=== PATIENT | female | born 2005 | race Caucasian/White ===

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

== ENCOUNTER 2024-03-09 19:25 | Outpatient (REF) | payer MEDICAID, SELFPAY ==
[2024-03-09 17:20] LABS: HCG Quant, Pregnancy 585 mIU/mL (1-3)
[2024-03-11 11:53] LABS: Chlamydia Result Negative (Negative); GC Result Negative (Negative)
== END 2024-03-09 19:26 | disposition home or self-care (01) ==
LOC: NCHCN 19:25
PROVIDERS: PCP Family Medicine; Visit Provider Family Medicine
DX: N91.2 Amenorrhea, unspecified (principal); Z00.00 Encounter for general adult medical examination without abnormal findings
CPT/HCPCS: 87491; 87591; 84702

== ENCOUNTER 2024-07-11 19:56 | Emergency (ER) | payer MEDICAID, SELFPAY ==
[2024-07-11 19:59] VITALS: BP 153/79; PULSE 92; RESP 18; O2SAT 100
[2024-07-11 20:02] VITALS: TEMP 36.2
[2024-07-11] MEDS: Docusate Sodium 100 MG/10 ML CUP PO (21:03)
--- OUTSIDE RECORDS SUMMARY | 2024-07-11 21:26 | XMS_ITS | Clinical Summary ---
Author Organization [facility] Address [address] [place] [id number] Care Team Providers Care Hand Profiler Name Role Phone Unavailable Primary Care Provider Unavailabl e Social History Tobacco Use Types Packs/Day Years Used Date Smoking Tobacco: Never Assessed Interpersonal Safety Answer Date Record ed Physically Hurt Never 04/19/2020 Verbally Threaten Not on file 04/19/2020 Comments Unknown Sex and Gender Information Value Date Recorded Sex Assigned at Not on file Legal Sex Female 8:51 EST Gender Identity Not on file Sexual Orientation Not on file Plan of Treatment Health Maintenance Due Date Last Done Comments Hepatitis B Vaccine (1 of 3 - 19+ 3-dose series) 10/05 COVID-19 Vaccine (2023- season) 2024 Hepatitis C Screen Completed 03/13/2022 Procedures Procedure Name Priority Date/Time Associated Diagnosis Comments HEPATITIS C AB W REFLEX TO HCV RNA BY PCR Routine 03/13/2022 11:10 EDT from Last 3 Months or Most Recently Relevant to Health Maintenance Results * HEPATITIS C AB W REFLEX TO HCV RNA BY PCR (03/13/2022 11:10 EDT) Hep C Antibody Negative Negative 03/14/2022 9:56 EDT [facility] Blood VENOUS BLOOD / Unknown 03/13/2022 11:10 EDT 03/13/2022 16:51 EDT us Provider Outr Resulting Lab CHEMISTRY & BLOOD GA S ORDERABLES Final Result [facility] [address] [place] [address] from Last 3 Months or Most Recently Relevant to Health Maintenance
--- OUTSIDE RECORDS SUMMARY | 2024-07-11 21:26 | XMS_ITS | Encounter Summary ---
Author Organization [facility] Address [address] [place] [address] Care Team Providers Care Rough Carpenter Name Role Phone Unavailable Primary Care Provider Unavailabl e Encounter Details Date Type Department Care Team (Late st Contact Info) Description 11/07/2019 Lab Requisition [facility] Pathology & Laboratory Medicine - [facility] [address] [place] [address] Outr Resulting Lab, Provider Social History Tobacco Use Types Packs/Day Years Used Date Smoking Tobacco: Never Assessed Comments Unknown Sex and Gender Information Value Date Recorded Sex Assigned at Not on file Legal Sex Female 8:51 EST Gender Identity Not on file Sexual Orientation Not on file documented as of this encounter Plan of Treatment Not on file documented as of this encounter Procedures Procedure Name Priority Date/Time Associated Diagnosis Comments CHLAMYDIA/N. GONORRHOEAE AMPLIFIED NUCLEIC ACID Routine 11/06/2019 13:20 EDT documented in this encounter Results * CHLAMYDIA/N. GONORRHOEAE AMPLIFIED RNA (11/06/2019 13:20 EDT) Neisseria gonorrhoeae Result Negative Negative 11/09/2019 15:15 EDT [facility] Chlamydia trachomatis Result Negative Negative 11/09/2019 15:15 EDT [facility] Urine URINE / Unknown 11/06/2019 1 3:20 EDT 11/08/2019 16:43 EDT Narrative [facility] - 11/09/2019 15:15 EDT A first catch urine specimen is acceptable for detection of Gonorrhea and Chlamydia, but might detect up to 10% fewer infections when compared with vaginal and endocervical swab samples. us Provider Outr Resulting Lab MICROBIOLOGY - GENER AL ORDERABLES Final Result [facility] [address] [place] [address] documented in this encounter Visit Diagnoses Not on filedocumented in this encounter
--- OUTSIDE RECORDS SUMMARY | 2024-07-11 21:26 | XMS_ITS | Encounter Summary ---
Author Organization [facility] Address [address] [place] [address] Care Team Providers Care Dipper Operator Name Role Phone Unavailable Primary Care Provider Unavailabl e Encounter Details Date Type Department Care Team (Late st Contact Info) Description 11/07/[address] [facility] Pathology & Laboratory Medicine - [facility] [place] [address] [place] [address] Outr Resulting Lab, Provider Social History Tobacco [...] gonorrhoeae Result Negative Negative 11/09/2019 15:15 EDT [facility] Chlamydia trachomatis Result Negative Negative 11/09/2019 15:15 EDT [facility] Swab ENTIRE VAGINA / Unknown 11/06/2019 13:20 EDT 11/08/2019 16:43 EDT us Provider Outr Resulting Lab MICROBIOLOGY - GENER AL ORDERABLES Final Result [facility] [address] [place] [address] documented in this encounter Visit Diagnoses Not on filedocumented in this encounter
--- OUTSIDE RECORDS SUMMARY | 2024-07-11 21:26 | XMS_ITS | Encounter Summary ---
[place] [address] Care Team Providers Care Wildlife Control Operator Name Role Phone Melva Santos MD Primary Care Provider [phone] Reason for Referral * Diagnostic Test (Routine) - Closed Specialty Diagnoses / Procedures Referred By Contac t Referred To Contact Radiology Diagnoses Family history of congenital anomalies 41 weeks gestation of Procedures US OB Detailed Morphology Alysia Souza CNM [address] [place] [address] [address] [place] [address] [place] [address] Referral ID Status Reason Start Date Expiration Date V isits Requested Visits Authorized [id number] Closed Specialty Service Requested 04/12/2022 10/11/2023 1 1 Reason for Visit * Diagnostic Test (Routine) - Closed Specialty Diagnoses / Procedures Referred By Contac t Referred To Contact Radiology Diagnoses Family history of congenital anomalies 41 weeks gestation of Procedures US OB Detailed Morphology Alysia Souza CNM [address] [facility] [address] [place] [address] [facility] [place] [address] Referral ID Status Reason Start Date Expiration Date V isits Requested Visits Authorized [id number] Closed Specialty Service Requested 04/12/2022 10/11/2023 1 1 Encounter Details Date Type Department Care Team (Latest Contact Info) Description 06/11/2022 8:04 AM EST - 06/11/2022 11:59 PM EST Hospital [place] [address] [address] Sou[address] [place] [address] Family history of congenital anomalies; 41 weeks gestation of Discharge Disposition: Home Social History Tobacco Use Types Packs/Day Years Used Date Smoking Tobacco: Every Day Smokeless Tobacco: Never Comments:Smokes marijuana no t cigarettes Alcohol Use Standard Drinks/Week Comments Not Currently 0 (1 standard drink = 0.6 oz pur e alcohol) Comments Yes Sex and Gender Information Value Date Recorded Sex Assigned at Female 05/17/2022 1:33 PM EST Gender Identity Not on file Sexual Orientation Straight 05/17/2022 1: 33 PM EST documented as of this encounter Medications at Time of Discharge Medication Sig Dispensed Refills Start Date End Date Ventolin HFA 90 mcg/actuation HFA Aerosol Inhaler 05/04/2022 ProChamber Spacer 05/04/2022 Vitamin Plus Low Iron 27 mg iron- 1 mg Tablet 04/23/2022 tretinoin (RETIN-A) 0.05 % CreamIndications:Acne vulgaris Apply topically nightly. 45 g 2 03/20/2017 clobetasol (TEMOVATE) 0.05 % SolutionIndications:Psor iasis Apply topically twice daily to the scalp. Do not let the solution go on the face or the neck. 50 mL 2 03/20/2017 clindamycin (CLEOCIN T) 1 % SolutionIndications:Acne vulgaris apply every morning to face and shoulders for acne. 60 mL 3 02/26/2017 hydrocortisone 2.5 % CreamIndications:Psorias is apply twice daily to affected areas in the armpits and buttocks for two weeks, then switch to Protopic. 30 g 02/26/2017 tacrolimus (PROTOPIC) 0.1 % OintmentIndications:Psor iasis apply twice daily to affected areas in the armpits and buttocks after finishing Hydrocortisone, for maintenance. 60 g 3 02/26/2017 fluocinonide (LIDEX) 0.05 % Solution Apply topically once daily to the scalp after showering or just before bed for 3 weeks, then take a week off. Okay to repeat cycle. 60 mL 02/26/2017 documented as of this encounter Plan of Treatment Not on file documented as of this encounter Procedures Procedure Name Priority Date/Time Associated Diagnosis Comments US OB DETAILED MORPHOLOGY Routine 06/11/2022 9:42 AM EST Family history of congenital anomalies 41 weeks gestation of documented in this encounter Results * US OB Detailed Morphology (06/11/2022 9:42 AM EST) Anatomical Region Laterality Modality Pelvis, Abdomen Ultrasound 06/11/2022 8:50 AM EST Impressions 06/11/2022 9:54 AM EST 2nd Trimester - Detailed Morphology - Summary Single intrauterine with a gestational age of 23w 4d based on LMP ??(12/28/21) Composite age based on the current ultrasound alone is 23w 1d. Current growth parameters are consistent with prior dating indicating normal growth. Amniotic fluid volume is Subjectively normal for gestational age Detailed anatomic evaluation was performed and no structural abnormalities are noted. Thank you for letting us participate in the care of this patient. If you are a health care provider and have any questions regarding this report, please contact the number above. For patients who have questions, please contact the health inpatient care manager rn that requested your imaging first. ? Radha Chun, Staff Physician Electronically Signed Final Report ?? 06/11/2022 09:53 am Narrative 06/11/2022 9:54 AM EST OBSTETRICS REPORT ?(Signed Final 06/11/2022 09:53 am) PATIENT INFO: ID #: ? [id number] ?: ??[birth year] (16 yrs)(F) Name: ? DHEERAJ Collins ? Visit Date: 06/11/2022 08:50 am ? RAZA PERFORMED BY: Performed By: ? Margarette Corbett RDMS Attending: ?Radha Chun MD Referred By: ?ALYSIA SOUZA Location: ? [facility] SERVICE(S) PROVIDED: [facility] - Detailed Morphology - [id number] ? [id number] INDICATIONS: 23 weeks gestation of ?Z3A.23 Heart defect maternal aunt and FOB brother VITAL SIGNS: Weight (lb): 166.0 Height: ?5'4 ? BMI: ? 28.49 EVALUATION: Num Of Fetuses: ? 1 Heart Rate(bpm): ??127 Cardiac Activity: ? Observed, normal rhythm Presentation: ? Breech Placenta: ? Anterior P. Cord Insertion: ?Within Normal Limits Amniotic Fluid DUSTIN FV: ?Subjectively normal for gestational age --------- BIOMETRY: --------- BPD: ?56.4 ??mm ? G.Age: ?? 23w 2d OFD: ?75.5 ??mm HC: ?212.4 ??mm ? G.Age: ?? 23w 2d FL: ? 40.0 ??mm ? G.Age: ?? 22w 6d HUM: ?39.3 ??mm ? G.Age: ?? 24w 0d CER: ?23.9 ??mm ? G.Age: ?? 22w 0d NFT: ?4.95 ??mm NB: ?8.0 ??mm LV: ?3.1 ??mm CM: ?4.0 ??mm CI: ?74.7 ??% ? 70 - 86 FL/HC: ? 18.8 ??% ? 18.7 - 20.9 FL/BPD: ?70.9 ??% ? 71 - 87 Est. FW: ? 517 ??gm ?1 lb 2 oz OB HISTORY: : ?1 GESTATIONAL AGE: LMP: ? 23w 4d ?Date: ??12/28/21 ? DORI: ?? 10/04/22 U/S Today: ? 23w 1d ?DORI: ?? 10/07/22 Best: ?23w 4d ?? Det. By: ??LMP ??(12/28/21) ?DORI: ?? 10/04/22 TARGETED ANATOMY: Central Nervous System Calvarium/Cranial V.: ??Within Normal Limits Intracranial Clrai: ? Within Normal Limits Cavum: ? Within Normal Limits Parenchyma: ?Within Normal Limits Lateral Ventricles: ?Within Normal Limits Choroid Plexus: ?Within Normal Limits Cereb./Vermis: ? Within Normal Limits Cisterna Magna: ?Within Normal Limits Midline Falx: ?Within Normal Limits Spine Cervical: ?Visualized Thoracic: ?Visualized Lumbar: ?Visualized Sacral: ?Visualized Shape/Curvature: ? Visualized Head/Neck Face: ?Within Normal Limits Lips: ?Within Normal Limits Neck: ?Within Normal Limits Nuchal Fold: ? Within Normal Limits Nasal Bone: ?Present Profile: ? Visualized Orbits/Eyes: ? Visualized Mandible: ?Visualized Maxilla: ? Visualized Thorax Thoracic Contour: ?Within Normal Limits Lungs: ? Visualized 4 Chamber View: ?Within Normal Limits Cardiac Activity: ?Normal Rhythm Rt Outflow Tract: ?Visualized Lt Outflow Tract: ?Visualized Aortic Arch: ? Visualized Ductal Arch: ? Visualized SVC: ? Visualized Cardiac [place]: ?Visualized Diaphragm: ? Visualized 3 Vessel View: ? Visualized 3 V Trachea View: ?Visualized IVC: ? Visualized Crossing: ?Visualized Abdomen Ventral Wall: ?Visualized Cord Insertion: ?Visualized Situs: ? Normal Stomach: ? Visualized Liver: ? Visualized Lt Kidney: ? Visualized Rt Kidney: ? Visualized Bladder: ? Visualized Bowel: ? Visualized Extremities Lt Humerus: ?Within Nomal Limits Rt Humerus: ?Within Normal Limits Lt Forearm: ?Within Normal Limits Rt Forearm: ?Within Normal Limits Lt Hand: ? Within Normal Limits Rt Hand: ? Within Normal Limits Lt Femur: ?Within Normal Limits Rt Femur: ?Within Normal Limits Lt Lower Leg: ?Within Normal Limits Rt Lower Leg: ?Within Normal Limits Lt Foot: ? Visualized Rt Foot: ? Visualized Other Umbilical Cord: ?3 vessel cord Genitalia: ? Normal CERVIX UTERUS ADNEXA: Right Ovary Size(cm) ? 1.5 ??x ?? 1.3 ?x ??1.6 ? Vol(ml): 1.6 Visualized Left Ovary Size(cm) ? 3.7 ??x ?? 2.5 ?x ??1.3 ? Vol(ml): 6.3 Visualized Procedure Note Elizabeth Chun MD - 06/11/2022 OBSTETRICS REPORT (Signed Final 06/11/2022 09:53 am) PATIENT INFO: ID #: [id number] : [birth year] (16 yrs)(F) Name: DHEERAJ Collins Visit Date: 06/11/2022 08:50 am PERSON PERFORMED BY: Performed By: Margarette Corbett RDMS Attending: Radha Chun MD Referred By: ALYSIA SOUZA Location: [facility] SERVICE(S) PROVIDED: [facility] - Detailed Morphology - [id number] INDICATIONS: 23 weeks gestation of Z3A.23 Heart defect maternal aunt and FOB brother VITAL SIGNS: Weight (lb): 166.0 Height: 5'4 BMI: 28.49 EVALUATION: Num Of Fetuses: 1 Heart Rate(bpm): 127 Cardiac Activity: Observed, normal rhythm Presentation: Breech Placenta: Anterior P. Cord Insertion: Within Normal Limits Amniotic Fluid DUSTIN FV: Subjectively normal for gestational age --------- BIOMETRY: --------- BPD: 56.4 mm G.Age: 23w 2d OFD: 75.5 mm HC: 212.4 mm G.Age: 23w 2d FL: 40.0 mm G.Age: 22w 6d HUM: 39.3 mm G.Age: 24w 0d CER: 23.9 mm G.Age: 22w 0d NFT: 4.95 mm NB: 8.0 mm LV: 3.1 mm CM: 4.0 mm CI: 74.7 % 70 - 86 FL/HC: 18.8 % 18.7 - 20.9 FL/BPD: 70.9 % 71 - 87 Est. FW: 517 gm 1 lb 2 oz OB HISTORY: : 1 GESTATIONAL AGE: LMP: 23w 4d Date: 12/28/21 DORI: 10/04/22 U/S Today: 23w 1d DORI: 10/07/22 Best: 23w 4d Det. By: LMP (12/28/21) DORI: 10/04/22 TARGETED ANATOMY: Central Nervous System Calvarium/Cranial V.: Within Normal Limits Intracranial Clari: Within Normal Limits Cavum: Within Normal Limits Parenchyma: Within Normal Limits Lateral Ventricles: Within Normal Limits Choroid Plexus: Within Normal Limits Cereb./Vermis: Within Normal Limits Cisterna Magna: Within Normal Limits Midline Falx: Within Normal Limits Spine Cervical: Visualized Thoracic: Visualized Lumbar: Visualized Sacral: Visualized Shape/Curvature: Visualized Head/Neck Face: Within Normal Limits Lips: Within Normal Limits Neck: Within Normal Limits Nuchal Fold: Within Normal Limits Nasal Bone: Present Profile: Visualized Orbits/Eyes: Visualized Mandible: Visualized Maxilla: Visualized Thorax Thoracic Contour: Within Normal Limits Lungs: Visualized 4 Chamber View: Within Normal Limits Cardiac Activity: Normal Rhythm Rt Outflow Tract: Visualized Lt Outflow Tract: Visualized Aortic Arch: Visualized Ductal Arch: Visualized SVC: Visualized Cardiac [place]: Visualized Diaphragm: Visualized 3 Vessel View: Visualized 3 V Trachea View: Visualized IVC: Visualized Crossing: Visualized Abdomen Ventral Wall: Visualized Cord Insertion: Visualized Situs: Normal Stomach: Visualized Liver: Visualized Lt Kidney: Visualized Rt Kidney: Visualized Bladder: Visualized Bowel: Visualized Extremities Lt Humerus: Within Nomal Limits Rt Humerus: Within Normal Limits Lt Forearm: Within Normal Limits Rt Forearm: Within Normal Limits Lt Hand: Within Normal Limits Rt Hand: Within Normal Limits Lt Femur: Within Normal Limits Rt Femur: Within Normal Limits Lt Lower Leg: Within Normal Limits Rt Lower Leg: Within Normal Limits Lt Foot: Visualized Rt Foot: Visualized Other Umbilical Cord: 3 vessel cord Genitalia: Normal CERVIX UTERUS ADNEXA: Right Ovary Size(cm) 1.5 x 1.3 x 1.6 Vol(ml): 1.6 Visualized Left Ovary Size(cm) 3.7 x 2.5 x 1.3 Vol(ml): 6.3 Visualized IMPRESSION 2nd Trimester - Detailed Morphology - Summary Single intrauterine with a gestational age of 23w 4d based on LMP (12/28/21) Composite age based on the current ultrasound alone is 23w 1d. Current growth parameters are consistent with prior dating indicating normal growth. Amniotic fluid volume is Subjectively normal for gestational age Detailed anatomic evaluation was performed and no structural abnormalities are noted. Thank you for letting us participate in the care of this patient. If you are a health care provider and have any questions regarding this report, please contact the number above. For patients who have questions, please contact the health inpatient care manager rn that requested your imaging first. Radha Chun, Staff Physician Electronically Signed Final Report 06/11/2022 09:53 am Alysia Souza CNM IMG US OB ORDERABLE S documented in this encounter Visit Diagnoses Diagnosis Family history of congenital anomalies 41 weeks gestation of Post term , unspecified episode of care documented in this encounter Care Teams Wildlife Control Operator Relationship Specialty Start Date End Date Melva Santos MD [facility] [address] [place] [address] PCP - General 04/18/10 documented as of this encounter
--- OUTSIDE RECORDS SUMMARY | 2024-07-11 21:26 | XMS_ITS | Encounter Summary ---
Author Organization [facility] Address [address] [place] [address] Care Team Providers Care Environmental Safety Specialist Name Role Phone Unavailable Primary Care Provider Unavailabl e Encounter Details Date Type Department Care Team (Late st Contact Info) Description 03/13/2022 Lab Requisition [facility] Pathology & Laboratory Medicine - [facility] [address] [place] [address] Outr Resulting Lab, Provider Social History Tobacco [...] Procedure Name Priority Date/Time Associated Diagnosis Comments HIV 1/2 ANTIGEN AND ANTIBODY, 4TH GENERATION Routine 03/13/2022 11:10 EDT documented in this encounter Results * HIV 1/2 ANTIGEN AND ANTIBODY, 4TH GENERATION (03/13/2022 11:10 EDT) HIV 1 and 2 Antibody/p24 Antigen, 4th Generation Negative Negative 03/14/2022 10:07 EDT [facility] Comment:If acute HIV-1 infec tion is suspected in a high risk patient, submit plasma specimen for HIV-1 RNA quantitation test. Blood VENOUS BLOOD / Unknown 03/13/2022 11:10 EDT 03/13/2022 16:51 EDT Narrative [facility] - 03/14/2022 10:07 EDT Fourth Generation assay performed on the Siemens Lookoutaur XPT. us Provider Outr Resulting Lab IMMUNOLOGY AND SEROL OGY ORDERABLES Final Result [facility] [address] [place] [address] documented in this encounter Visit Diagnoses Not on filedocumented in this encounter
--- OUTSIDE RECORDS SUMMARY | 2024-07-11 21:26 | XMS_ITS | Referral Summary ---
Author Organization [facility] Address [address] [place] [address] Care Team Providers Care Director Of Sports Performance Name Role Phone Unavailable Primary Care Provider [...] Orientation Not on file Plan of Treatment Not on file Procedures Procedure Name Priority Date/Time Associated Diagnosis Comments HEPATITIS C AB W REFLEX TO HCV RNA BY PCR Routine 03/13/2022 11:10 EDT from Last 3 Months or Most Recently Relevant to Health Maintenance Results * HEPATITIS C AB W REFLEX TO HCV RNA BY PCR (03/13/2022 11:10 EDT) Hep C Antibody Negative Negative 03/14/2022 9:56 EDT [facility] Blood VENOUS BLOOD / Unknown 03/13/2022 11:10 EDT 03/13/2022 16:51 EDT us Provider Outr Resulting Lab CHEMISTRY & BLOOD GA S ORDERABLES Final Result [facility] [address] [place] [address] from Last 3 Months or Most Recently Relevant to Health Maintenance
--- OUTSIDE RECORDS SUMMARY | 2024-07-11 21:26 | XMS_ITS | Encounter Summary ---
Author Organization [facility] Address [address] [place] [address] Care Team Providers Care Customer Service Leader Name Role Phone Unavailable Primary Care Provider Unavailabl e Encounter Details Date Type Department Care Team (Late st Contact Info) Description 03/13/2022 Lab Requisition [facility] Pathology & Laboratory Medicine - [facility] [address] [place] [address] Outr Resulting Lab, Provider Social History Tobacco [...] RNA BY PCR Routine 03/13/2022 11:10 EDT HEPATITIS B SURFACE ANTIGEN Routine 03/13/2022 11:10 EDT documented in this encounter Results * HEPATITIS B SURFACE ANTIGEN (03/13/2022 11:10 EDT) Hep B Surface Ag Negative Negative 03/14/2022 9:14 EDT [facility] Blood VENOUS BLOOD / Unknown 03/13/2022 11:10 EDT 03/13/2022 16:51 EDT us Provider Outr Resulting Lab CHEMISTRY & BLOOD GA S ORDERABLES Final Result [facility] [address] [place] [address] * HEPATITIS C AB W REFLEX TO HCV RNA BY PCR (03/13/2022 11:10 EDT) Hep C Antibody Negative Negative 03/14/2022 9:56 EDT [facility] Blood VENOUS BLOOD / Unknown 03/13/2022 11:10 EDT 03/13/2022 16:51 EDT us Provider Outr Resulting Lab CHEMISTRY & BLOOD GA S ORDERABLES Final Result [facility] [address] [place] [address] documented in this encounter Visit Diagnoses Not on filedocumented in this encounter
--- OUTSIDE RECORDS SUMMARY | 2024-07-11 21:26 | XMS_ITS | Clinical Summary ---
Author Organization [facility], [facility]–1983 Address [facility] [address] Care Team Providers Care Blood Collector Name Role Phone Melva Santos MD Primary Care Provider [phone] Allergies No known active allergies Medications Medication Sig Dispensed Refills Start Date End Date Status clindamycin (CLEOCIN T) 1 % SolutionIndications: Acne vulgaris apply every morning to face and shoulders for acne. 60 mL 3 02/26/2017 Active Additional Information Patient not taking.Reported on 06/11/2022 hydrocortisone 2.5 % CreamIndications:Pso riasis apply twice daily to affected areas in the armpits and buttocks for two weeks, then switch to Protopic. 30 g 02/26/2017 Active Additional Information Patient not taking.Reported on 06/11/2022 tacrolimus (PROTOPIC) 0.1 % OintmentIndications: Psoriasis apply twice daily to affected areas in the armpits and buttocks after finishing Hydrocortisone, for maintenance. 60 g 3 02/26/2017 Active Additional Information Patient not taking.Reported on 06/11/2022 fluocinonide (LIDEX) 0.05 % Solution Apply topically once daily to the scalp after showering or just before bed for 3 weeks, then take a week off. Okay to repeat cycle. 60 mL 02/26/2017 Active Additional Information Patient not taking.Reported on 06/11/2022 tretinoin (RETIN-A) 0.05 % CreamIndications:Acn e vulgaris Apply topically nightly. 45 g 2 03/20/2017 Active Additional Information Patient not taking.Reported on 06/11/2022 clobetasol (TEMOVATE) 0.05 % SolutionIndications: Psoriasis Apply topically twice daily to the scalp. Do not let the solution go on the face or the neck. 50 mL 2 03/20/2017 Active Additional Information Patient not taking.Reported on 06/11/2022 Ventolin HFA 90 mcg/actuation HFA Aerosol Inhaler 05/04/2022 Active ProChamber Spacer 05/04/2022 Active Vitamin Plus Low Iron 27 mg iron- 1 mg Tablet 04/23/2022 Active Active Problems Problem Noted Date Diagnosed Date Family history of congenital heart defect 2022 Immunizations Name Administration Dates Next Due Hepatitis B, Unspecified Formulation 2004 Social History Tobacco Use Types Packs/Day Years Used Date Smoking Tobacco: Every Day Smokeless Tobacco: Never Tobacco Cessation:Ready to Q uit: Not Asked; Counseling Given: Not Answered Comments:Smokes marijuana not cigarettes Alcohol Use Standard Drinks/Week Comments Not Currently 0 (1 standard drink = 0.6 oz pur e alcohol) Sex and Gender Information Value Date Recorded Sex Assigned at Female 05/17/2022 1:33 PM EST Gender Identity Not on file Sexual Orientation Straight 05/17/2022 1: 33 PM EST Last Filed Vital Signs Vital Sign Reading Time Taken Comments Blood Pressure 123/59 06/11/2022 8:16 AM EST Pulse 82 06/11/2022 8:16 AM EST Temperature 36.4 ??C (97.6 ??F) 06/11/2022 8:16 AM ES T Respiratory Rate 18 06/11/2022 8:16 AM EST Oxygen Saturation 100% 06/11/2022 8:16 AM EST Inhaled Oxygen Concentration - - Weight 71.4 kg (157 lb 8 oz) 06/11/2022 8:16 AM EST Height 166.2 cm (5' 5.45) 06/11/2022 8:16 AM ES T Body Mass Index 25.85 06/11/2022 8:16 AM EST Body Mass Index Percentile 86.29% 06/11/2022 8:1 6 AM EST Growth Chart: [facility] (Girls, 2- 20 Years) Plan of Treatment Health Maintenance Due Date Last Done Comments Hepatitis B vaccine (0-59 yrs) (2) 11/09/20042004 Chlamydia Screening 10/06/2019 HPV vaccine (1 - 3-dose series) 10/06/2019 HIV screen 2022 Hepatitis C Screening 2022 Pneumococcal Vaccine: At-Risk 5-49yrs (1 of 2 - PCV) 0 10/06/2023 Tetanus/Diphtheria/Pertussis Vaccines (1 - Tdap) 10/05 Covid-19 Vaccine (1 - 2023-25 season) 2024 Influenza (Flu) vaccine (1 o f 1 - Influenza standard series) 01/26/2024 Care Teams Blood Collector Relationship Specialty Start Date End Date Melva Santos MD [address] [place], [place] [id number] PCP - General 04/18/10
--- OUTSIDE RECORDS SUMMARY | 2024-07-11 21:26 | XMS_ITS | Encounter Summary ---
Author Organization [facility] Address [address] [place] [address] Care Team Providers Care Ballast Inspector Name Role Phone Unavailable Primary Care Provider Unavailabl e Encounter Details Date Type Department Care Team (Late st Contact Info) Description 03/13/2022 Lab Requisition [facility] Pathology & Laboratory Medicine - [facility] [address] [place] [address] Outr Resulting Lab, Provider Social History Tobacco [...] Comments CHLAMYDIA/N. GONORRHOEAE AMPLIFIED NUCLEIC ACID Routine 03/13/2022 10:50 EDT documented in this encounter Results * CHLAMYDIA/N. GONORRHOEAE AMPLIFIED RNA (03/13/2022 10:50 EDT) Neisseria gonorrhoeae Result Negative Negative 03/14/2022 15:36 EDT [facility] Chlamydia trachomatis Result Negative Negative 03/14/2022 15:36 EDT [facility] Swab ENTIRE ENDOCERVIX / Unknown 03/13/2022 10:50 EDT 03/13/2022 22:15 EDT us Provider Outr Resulting Lab MICROBIOLOGY - GENER AL ORDERABLES Final Result [facility] [address] [place] [address] documented in this encounter Visit Diagnoses Not on filedocumented in this encounter
--- OUTSIDE RECORDS SUMMARY | 2024-07-11 21:26 | XMS_ITS | Encounter Summary ---
Author Organization [facility] Address [address] [place] [address] Care Team Providers Care Cashier Parking Lot Name Role Phone Unavailable Primary Care Provider Unavailabl e Encounter Details Date Type Department Care Team (Late st Contact Info) Description 07/02/2019 Lab Requisition [facility] Pathology & Laboratory Medicine - [facility] [address] [place] [address] Unknown, Provider, MD Social History Tobacco Use Types Packs/Day Years [...] Comments CHLAMYDIA/N. GONORRHOEAE AMPLIFIED NUCLEIC ACID Routine 07/01/2019 16:20 EST documented in this encounter Results * CHLAMYDIA/N. GONORRHOEAE AMPLIFIED RNA (07/01/2019 16:20 EST) Neisseria gonorrhoeae Result Negative Negative 07/03/2019 14:44 EST [facility] Chlamydia trachomatis Result Negative Negative 07/03/2019 14:44 EST [facility] Urine URINE / Unknown 07/01/2019 1 6:20 EST 07/02/2019 15:49 EST Narrative [facility] - 07/03/2019 14:44 EST A first catch urine specimen is acceptable for detection of Gonorrhea and Chlamydia, but might detect up to 10% fewer infections when compared with vaginal and endocervical swab samples. us Provider Unknown MICROBIOLOGY - GENERAL ORDER DUANE Final Result [facility] [address] [place] [address] documented in this encounter Visit Diagnoses Not on filedocumented in this encounter
--- OUTSIDE RECORDS SUMMARY | 2024-07-11 21:26 | XMS_ITS | Encounter Summary ---
Author Organization [facility] Address [address] [place] [address] Care Team Providers Care Corporate Strategy Associate Name Role Phone Unavailable Primary Care Provider Unavailabl e Encounter Details Date Type Department Care Team (Late st Contact Info) Description 03/13/2022 Lab Requisition [facility] Pathology & Laboratory Medicine - [facility] [address] [place] [address] Outr Resulting Lab, Provider Social History Tobacco [...] Procedure Name Priority Date/Time Associated Diagnosis Comments RUBELLA IGG ANTIBODY Routine 03/13/2022 11:10 EDT VARICELLA IGG ANTIBODY Routine 03/13/2022 11:10 EDT documented in this encounter Results * VARICELLA IGG ANTIBODY (03/13/2022 11:10 EDT) Varicella IgG Ab Positive See Note 03/14/2022 12:41 EDT [facility] Comment:Presence of detectab le Varicella Zoster virus IgG antibodies. Blood VENOUS BLOOD / Unknown 03/13/2022 11:10 EDT 03/13/2022 16:51 EDT us Provider Outr Resulting Lab IMMUNOLOGY AND SEROL OGY ORDERABLES Final Result [facility] [address] [place] [address] * RUBELLA IGG ANTIBODY (03/13/2022 11:10 EDT) Rubella IgG Ab Positive See Note 03/14/2022 12:46 EDT [facility] Comment:Positive for IgG ant ibodies to Rubella virus. Blood VENOUS BLOOD / Unknown 03/13/2022 11:10 EDT 03/13/2022 16:51 EDT us Provider Outr Resulting Lab CHEMISTRY & BLOOD GA S ORDERABLES Final Result [facility] [address] [place] [address] documented in this encounter Visit Diagnoses Not on filedocumented in this encounter
--- OUTSIDE RECORDS SUMMARY | 2024-07-11 21:26 | XMS_ITS | Encounter Summary ---
Author Organization [facility] Address [address] [place] [address] Care Team Providers Care Onion Farmer Name Role Phone Unavailable Primary Care Provider Unavailabl e Encounter Details Date Type Department Care Team (Late st Contact Info) Description 08/09/2021 Lab Requisition [facility] Pathology & Laboratory Medicine - [facility] [address] [place] [address] Outr Resulting Lab, Provider Social History Tobacco [...] 1/2 ANTIGEN AND ANTIBODY, 4TH GENERATION Routine 08/08/2021 14:20 EDT documented in this encounter Results * HIV 1/2 ANTIGEN AND ANTIBODY, 4TH GENERATION (08/08/2021 14:20 EDT) HIV 1 and 2 Antibody/p24 Antigen, 4th Generation Negative Negative 08/10/2021 9:49 EDT [facility] Comment:If acute HIV-1 infec tion is suspected in a high risk patient, submit plasma specimen for HIV-1 RNA quantitation test. Blood VENOUS BLOOD / Unknown 08/08/2021 14:20 EDT 08/09/2021 17:11 EDT Narrative [facility] - 08/10/2021 9:49 EDT Fourth Generation assay performed on the Siemens Mixgaraur XPT. us Provider Outr Resulting Lab IMMUNOLOGY AND SEROL OGY ORDERABLES Final Result [facility] [address] [place] [address] documented in this encounter Visit Diagnoses Not on filedocumented in this encounter
--- OUTSIDE RECORDS SUMMARY | 2024-07-11 21:26 | XMS_ITS | Encounter Summary ---
Author Organization [facility] Address [address] [place] [address] Care Team Providers Care Masonry Contractor Name Role Phone Unavailable Primary Care Provider Unavailabl e Encounter Details Date Type Department Care Team (Late st Contact Info) Description 03/10/2024 Lab Requisition [facility] Pathology & Laboratory Medicine - [facility] [address] [place] [address] Outr Resulting Lab, Provider Social History Tobacco [...] Comments CHLAMYDIA/N. GONORRHOEAE AMPLIFIED NUCLEIC ACID Routine 03/09/2024 9:30 EDT documented in this encounter Results * CHLAMYDIA/N. GONORRHOEAE AMPLIFIED NUCLEIC ACID (03/09/2024 9:30 EDT) Neisseria gonorrhoeae Result Negative Negative 03/11/2024 11:46 EDT [facility] Chlamydia trachomatis Result Negative Negative 03/11/2024 11:46 EDT [facility] Urine URINE / Unknown 03/09/2024 9 :30 EDT 03/10/2024 16:38 EDT Narrative [facility] - 03/11/2024 11:46 EDT A first catch urine specimen is acceptable for detection of Gonorrhea and Chlamydia, but might detect up to 10% fewer infections when compared with vaginal swab samples. us Provider Outr Resulting Lab MICROBIOLOGY - GENER AL ORDERABLES Final Result [facility] [address] [place] [address] documented in this encounter Visit Diagnoses Not on filedocumented in this encounter
--- OUTSIDE RECORDS SUMMARY | 2024-07-11 21:26 | XMS_ITS | Encounter Summary ---
Author Organization [facility] Address [facility] [place] [address] Care Team Providers Care Pepper Cutter Name Role Phone Melva Santos MD Primary Care Provider [phone] Reason for Visit * Reason Comments Family History * Consultation (Routine) - Closed Specialty Diagnoses / Procedures Referred By Contac t Referred To Contact Obstetrics and Gynecology Diagnoses Family history of congenital anomalies , unspecified gestational age Madeline Souza[address] [place] [address] [facility] [employer] [address] [address] [place] [address] Referral ID Status Reason Start Date Expiration Date V isits Requested Visits Authorized [id number] Closed Consult, Test & Treat PCP Updated and/or Approved 04/12/2022 04/12/2023 6 6 Encounter Details Date Type Department Care Team (Late st Contact Info) Description 06/11/2022 8:00 AM EST Office Visit Obstetrics [place] [address] Chelsie López, [facility] OBSTETRICS [place] [address] screening encounter Social History Tobacco Use Types Packs/Day Years [...] PM EST documented as of this encounter Progress Notes * Chelsie López, [facility] - 06/11/2022 8:00 AM ESTSummary: Reproductive genetic counseling Reproductive Genetic Counseling Note Radha Pires is a 16 y.o. female currently at 23w4d gestation. I met with Radha for a 15 minute genetic counseling office visit in [place], [place]. She was accompanied to the visit by her mother, Dionna, and her partner, Jason. Referring Provider: Madeline Souza, [address] [place] [address] Indication for genetic counseling: Family history of congenital heart defect The family history was otherwise unremarkable for intellectual disability, congenital anomalies, recurrent loss, or known genetic conditions that could have implications for this .Radha and Jason are white. Consanguinity was denied. OB History Para Term AB Living 1 0 0 0 0 0 SAB IAB Ectopic Multiple Live Births 0 0 0 0 0 # Outcome Date GA Lbr Tima/2nd Weight Sex Delivery Anes PTL Lv 1 Current Patient's last menstrual period was 12/28/2021 (exact date). Estimated Date of Delivery: 10/04/22 based on LMP and supported by ultrasound (03/08/22 = 9w4d) Genetic Screening Test Result Panorama screen Low risk, does wish to learn sex Spinal muscular atrophy screen Not in record Cystic fibrosis carrier screen Accepted, result not in record Thalassemia screen MCV within normal limits (85 fL) Assessment Jason reported his brother had heart surgery as an infant; during our visit the specific heart defect could not be recalled. Congenital heart defects are the most common type of defect occurringin about 1% of newborns. The majority of congenital heart defects are isolated, although some will be associated with a genetic condition or an environmental exposure. The family history as reported is consistent with an isolated congenital heart defect, and does not significantly increase the riskfor this couple to have a child with a congenital heart defect. A second-degree relative (i.e. Jason's children) of an individual with an isolated congenital heart defect has a 1-2% risk to be affected with any type of heart defect. We discussed the limitations of ultrasound in that not all heart defects can be detected. Radha reported her maternal aunt had a flap in her heart that did not close and caused blood clots. This sounds like patent foramen ovale (PFO) which is not a congenital heart defect. PFO is aremnant of normal development that persists in about 25% of the population. PFO appears to have a familial predilection. Radha's offspring may be at increased risk for PFO; however, this condition can not be diagnosed prior to . Plan: Following our visit, Radha had a morphology ultrasound and maternal- medicineconsultation with Dr. Radha Chun. Please refer to her note for further details and recommendations. documented in this encounter Plan of Treatment Scheduled Referrals Name Type Priority Associated Diagnoses Orde r Schedule Referral to Maternal Medicine Outpatient Referral Routine Family history of congenital anomalies , unspecified gestational age Ordered: 04/12/2022 documented as of this encounter Visit Diagnoses Diagnosis screening encounter Unspecified screening documented in this encounter Care Teams Pepper Cutter Relationship Specialty Start Date End Date Melva Santos MD [address] [place] [address] PCP - General 04/18/10 documented as of this encounter
--- OUTSIDE RECORDS SUMMARY | 2024-07-11 21:26 | XMS_ITS | Encounter Summary ---
Author Organization [facility] Address [facility] [place] [address] Care Team Providers Care Senior Electrical Project Manager Name Role Phone Melva Santos MD Primary Care Provider [phone] Reason for Visit * Reason Comments Establish Care Encounter Details Date Type Department Care Team (Late st Contact Info) Description 06/11/2022 10:00 AM EST Office Visit Obstetrics [place] [address] Cj Chun MD [facility] [address] OBSTETRICS [place] [address] Family history of congenital heart defect Social History Tobacco Use Types Packs/Day Years [...] PM EST documented as of this encounter Last Filed Vital Signs Vital Sign Reading [...] 8:1 6 AM EST Growth Chart: [facility] (Girls, 2- 20 Years) documented in this encounter Progress Notes * Cj Chun MD - 06/11/2022 10:00 AM EST Diagnosis/Maternal Medicine Consult Note Radha Pires is a 16 y.o. year old female who is at 23w4d gestation. She is seen in consultation at the request of Madeline Souza CNM for evaluation of anatomy due to FOB's family history of heart defect: his brother was born with transposition of the great arteries. She was seen today for maternal- medicine consultation, ultrasound evaluation and genetic counseling with Chelsie Ying MS, [facility]. Review of Systems Constitutional:feels well Movement: normal Contractions: none Leaking: None Bleeding: None Patient Active Problem List Diagnosis Date Noted ??? Family history of congenital heart defect 06/11/2022 No past medical history on file. No past surgical history on file. No family history on file. Social History Occupational History ??? Not on file Tobacco Use ??? Smoking status: Every Day ??? Smokeless tobacco: Never ??? Tobacco comments: Smokes marijuana not cigarettes Vaping Use ??? Vaping Use: Former Substance and Sexual Activity ??? Alcohol use: Not Currently ??? Drug use: Not Currently Types: Marijuana ??? Sexual activity: Yes Partners: Male OB History 1 Para Term AB Living SAB IAB Ectopic Multiple Live Births # Outc Date GA Lbr Tima/2nd Wgt Sex Del Anes PTL Lv 1 Current Current Outpatient Medications Medication Sig Dispense Refill ??? Ventolin HFA 90 mcg/actuation HFA Aerosol Inhaler ??? ProChamber Spacer ??? Vitamin Plus Low Iron 27 mg iron- 1 mg Tablet ??? tretinoin (RETIN-A) 0.05 % Cream Apply topically nightly. (Patient not taking: Reported on 06/11/2022) 45 g 2 ??? clobetasol (TEMOVATE) 0.05 % Solution Apply topically twice daily to the scalp. Do not let the solution go on the face or the neck. (Patient not taking: Reported on 06/11/2022) 50 mL 2 ??? clindamycin (CLEOCIN T) 1 % Solution apply every morning to face and shoulders for acne. (Patient not taking: Reported on 06/11/2022) 60 mL 3 ??? hydrocortisone 2.5 % Cream apply twice daily to affected areas in the armpits and buttocks for two weeks, then switch to Protopic. (Patient not taking: Reported on 06/11/2022) 30 g 0 ??? tacrolimus (PROTOPIC) 0.1 % Ointment apply twice daily to affected areas in the armpits and buttocks after finishing Hydrocortisone, for maintenance. (Patient not taking: Reported on 06/11/2022) 60 g 3 ??? fluocinonide (LIDEX) 0.05 % Solution Apply topically once daily to the scalp after showering orjust before bed for 3 weeks, then take a week off. Okay to repeat cycle. (Patient not taking: Reported on 06/11/2022) 60 mL 0 No current facility-administered medications for this visit. No Known Allergies Ultrasound Date: 06/11/2022 Amniotic fluid volume normal Presentation breech Placenta anterior Growth appropriate for gestational age anatomy appears normal Physical Exam BP 123/59 Pulse 82 Temp 36.4 ??C (97.6 ??F) Resp 18 Ht 166.2 cm (5' 5.45) Wt 71.4 kg (157 lb 8 oz) LMP 12/28/2021 (Exact Date) SpO2 100% BMI 25.85 kg/m?? General: alert, well appearing, in no apparent distress, oriented to person, place and time HEENT: normocephalic, atraumatic Abdomen: Soft, nontender Extremities: no edema Neurologic:alert, oriented, normal speech, no focal findings or movement disorder noted Psychiatric: Affect is Appropriate. Assessment and Recommendations: 16 y.o. year old female at 23w4d weeks gestation, referred for counseling regarding anatomy, which appears normal. I reviewed with the patient, her mother, and her boyfriend the limitations of ultrasound. As the FOB's brother is a second degree relative to the fetus, echocardiogramis not indicated at this time, however whenever they have a child together, detailed anatomy evaluat ion would be indicated. I appreciate the opportunity to be involved in this patients care, and am available if further questions should arise. Cj CHUN MD 06/11/2022 Cc: Madeline Souza, [facility] [address] [place] [address] [place] [address] , with copy of ultrasound report documented in this encounter Plan of Treatment Not on file documented as of this encounter Visit Diagnoses Diagnosis Family history of congenital heart defect Family history of congenital anomalies documented in this encounter Care Teams Senior Electrical Project Manager Relationship Specialty Start Date End Date Melva Santos MD [address] [place] [address] PCP - General 04/18/10 documented as of this encounter
--- OUTSIDE RECORDS SUMMARY | 2024-07-11 21:26 | XMS_ITS | Encounter Summary ---
Author Organization [facility] Address [address] [place] [address] Care Team Providers Care Interim Controller Name Role Phone Unavailable Primary Care Provider Unavailabl e Encounter Details Date Type Department Care Team (Late st Contact Info) Description 08/09/[address] [facility] Pathology & Laboratory Medicine - [facility] [address] [place] [address] Outr Resulting Lab, Provider Social History Tobacco [...] Procedure Name Priority Date/Time Associated Diagnosis Comments RHEUMATOID FACTOR Routine 08/08/2021 14: 20 EDT ANTI NUCLEAR AB (BECKY), IFA Routine 08/08/2021 14:20 EDT documented in this encounter Results * RHEUMATOID FACTOR (08/08/2021 14:20 EDT) Rheumatoid Factor <8.6 <12.0 IU/mL 08/09/2021 17:38 EDT [facility] Blood VENOUS BLOOD / Unknown 08/08/2021 14:20 EDT 08/09/2021 17:12 EDT us Provider Outr Resulting Lab CHEMISTRY & BLOOD GA S ORDERABLES Final Result [facility] [address] [place] [address] * ANTI NUCLEAR AB (BECKY), IFA (08/08/2021 14:20 EDT) BECKY Interpretation Negative Negative 2021 13:45 EDT [facility] Comment:No titer performed, BECKY Screen is negative. Blood VENOUS BLOOD / Unknown 08/08/2021 14:20 EDT 08/09/2021 17:12 EDT Narrative [facility] - 08/10/2021 13:45 EDT Results were obtained with the INOVA NOVA Lite HEp-2 BECKY Kit by indirect immunofluorescence. us Provider Outr Resulting Lab IMMUNOLOGY AND SEROL OGY ORDERABLES Final Result [facility] [address] [place] [address] documented in this encounter Visit Diagnoses Not on filedocumented in this encounter
--- OUTSIDE RECORDS SUMMARY | 2024-07-11 21:26 | XMS_ITS | Encounter Summary ---
Author Organization [facility] Address [address] [place] [address] Care Team Providers Care Oncology Rep Specialist Name Role Phone Unavailable Primary Care Provider Unavailabl e Encounter Details Date Type Department Care Team (Late st Contact Info) Description 08/09/2021 Lab Requisition [facility] Pathology & Laboratory Medicine - [facility] [address] [place] [address] Outr Resulting Lab, Provider Social History Tobacco [...] Procedure Name Priority Date/Time Associated Diagnosis Comments VARICELLA ZOSTER VIRUS MOLECULAR DETECTION, PCR Routine 08/08/2021 14:20 EDT HSV (HERPES SIMPLEX VIRUS) MOLECULAR DETECTION, PCR Routine 08/08/2021 14:20 EDT documented in this encounter Results * VARICELLA ZOSTER VIRUS MOLECULAR DETECTION, PCR (08/08/2021 14:20 EDT) VARICELLA ZOSTER VIRUS MOLECULAR DETECTION, PCR Negative Negative, Invalid 08/10/2021 11:47 EDT [facility] Comment:This test was shade kathleen and its performance characteristics determined by [facility]. It has not been cleared or approved by the US Food and Drug Administration. FDA does not require this test to go through premarket FDA review. This test is used for clinical purposes. It should not be regarded as investigational or research. This laboratory is certified under the Clinical Laboratory Improvement Amendments (CLIA) as qualified to perform high complexity clinical laboratory testing. Swab TISSUE SPECIMEN FROM SKIN / Unknown 08/08/2021 14:20 EDT 08/09/2021 18:06 EDT us Provider Outr Resulting Lab MICROBIOLOGY - GENER AL ORDERABLES Final Result Performing Organization Address City/[facility] Co de Phone Number [facility] [address] [place] [address] * HERPES SIMPLEX VIRUS MOLECULAR DETECTION, PCR (08/08/2021 14:20 EDT) Herpes Simplex Virus Molecular Detection 1, PCR Indeterminate Negative 08/10/2021 14:17 EDT [facility] Comment:An INVALID or INDETE RMINATE result for this test is an indicator that the sample was not suitable for testing after running the test twice. It is not a lab error. Either there was no DNA or RNA in the sample or there was an interfering substance (e.g. mucus) that prevented detection of any human or viral DNA or RNA. Recollection of the specimen should be considered. Herpes Simplex Virus Molecular Detection 2, PCR Indeterminate Negative 08/10/2021 14:17 EDT [facility] Comment: Result indeterminate. Suggest repeat if clinically indicated. An INVALID or INDETERMINATE result for this test is an indicator that the sample was not suitable for testing after running the test twice. It is not a lab error. Either there was no DNA or RNA in the sample or there was an interfering substance (e.g. mucus) that prevented detection of any human or viral DNA or RNA. ??Recollection of the specimen should be considered. Swab TISSUE SPECIMEN FROM SKIN / Unknown 08/08/2021 14:20 EDT 08/09/2021 18:06 EDT us Provider Outr Resulting Lab MICROBIOLOGY - GENER AL ORDERABLES Final Result Performing Organization Address City/[facility]/ZIP Co de Phone Number [facility] [address] [place] [address] documented in this encounter Visit Diagnoses Not on filedocumented in this encounter
--- OUTSIDE RECORDS SUMMARY | 2024-07-11 21:26 | XMS_ITS | Encounter Summary ---
Author Organization [facility] Address [address] [place] [address] Care Team Providers Care Lumber Estimator Name Role Phone Unavailable Primary Care Provider Unavailabl e Encounter Details Date Type Department Care Team (Late st Contact Info) Description 04/24/2019 Lab Requisition [facility] Pathology & Laboratory Medicine - [facility] [address] [place] [address] Unknown, Provider, MD Social History Tobacco Use [...] Comments CHLAMYDIA/N. GONORRHOEAE AMPLIFIED NUCLEIC ACID Routine 04/22/2019 10:27 EST documented in this encounter Results * CHLAMYDIA/N. GONORRHOEAE AMPLIFIED RNA (04/22/2019 10:27 EST) Neisseria gonorrhoeae Result Negative Negative 04/27/2019 15:05 EST [facility] Chlamydia trachomatis Result Negative Negative 04/27/2019 15:05 EST [facility] Urine URINE / Unknown Urine Collect / Unknown 04/22/2019 10:27 EST 04/24/2019 17:50 EST Narrative [facility] - 04/27/2019 15:05 EST A first catch urine specimen is acceptable for detection of Gonorrhea and Chlamydia, but might detect up to 10% fewer infections when compared with vaginal and endocervical swab samples. us Provider Unknown MICROBIOLOGY - GENERAL ORDER DUANE Final Result [facility] [address] [place] [address] documented in this encounter Visit Diagnoses Not on filedocumented in this encounter
--- OUTSIDE RECORDS SUMMARY | 2024-07-11 21:26 | XMS_ITS | Encounter Summary ---
[place] [address] Care Team Providers Care Physician Pediatrician Name Role Phone Melva Santos MD Primary Care Provider Encounter Details Date Type Department Care Team (Latest Contact Info) Description 06/11/2022 Travel Social History Tobacco Use Types Packs/Day Years [...] PM EST documented as of this encounter Plan of Treatment Not on file documented as of this encounter Visit Diagnoses Not on filedocumented in this encounter Care Teams Physician Pediatrician Relationship Specialty Start Date End Date Melva Santos MD [address] [place] [address] [address] [place] [address] PCP - General 04/18/10 documented as of this encounter
--- OUTSIDE RECORDS SUMMARY | 2024-07-11 21:27 | XMS_ITS | Encounter Summary ---
[place] [address] Care Team Providers Care Keymodule Assembly Machine Tender Name Role Phone Melva Santos MD Primary Care Provider [phone] Reason for Visit * Reason Onset Date Comments Prior Authorization 03/06/2017 Encounter Details Date Type Department Care Team (Late st Contact Info) Description 03/06/2017 Telephone Dermatology at [address] [phone] Lewis Moreno MD Prior Authorization Social History Tobacco Use Types Packs/Day Years Used Date Smoking Tobacco: Never Smokeless Tobacco: Never Sex and Gender Information Value Date Recorded Sex Assigned at Female 05/17/2022 1:33 PM EST Gender Identity Not on file Sexual Orientation Straight 05/17/2022 1: 33 PM EST documented as of this encounter Miscellaneous Notes * Telephone Encounter - Ramona Babb - 03/07/2017 9:17 AM EDT Received approval for patients Tacrolimus 0.1% ointment. Coverage has been approved through 03/06/18. All documents faxed to medical records. * Telephone Encounter - Ramona Babb - 03/06/2017 10:45 AM EDT Prior authorization request for patients Tacrolimus 0.1% ointment faxed to [place] Medicaid through Cover My Meds on 03/06/17. If we have not received a response in 3-5 business days we can call documented in this encounter Plan of Treatment Not on file documented as of this encounter Visit Diagnoses Not on filedocumented in this encounter Care Teams Keymodule Assembly Machine Tender Relationship Specialty Start Date End Date Melva Santos MD Neftali [address] DR [facility] [address] [place] [address] PCP - General 04/18/10 documented as of this encounter
--- OUTSIDE RECORDS SUMMARY | 2024-07-11 21:27 | XMS_ITS | Encounter Summary ---
Author Organization [facility] [place] [address] Care Team Providers Care Principle Software Engineer Name Role Phone Melva Santos MD Primary Care Provider [phone] Reason for Referral * Consultation (Routine) - Closed Specialty Diagnoses / Procedures Referred By Lacey murphy Referred To Contact Obstetrics and Gynecology Diagnoses Family history of congenital anomalies , unspecified gestational age Madeline Souza CNM [address] [place] [address] [address] [place] [address] [facility] Dental Equipment Technician [address] [place] [address] Referral ID Status Reason Start Date Expiration Date V isits Requested Visits Authorized [id number] Closed Consult, Test & Treat PCP Updated and/or Approved 04/12/2022 04/12/2023 6 6 Encounter Details Date Type Department Care Team (Late st Contact Info) Description 04/12/2022 Transcribe Orders eD Incoming Referrals [phone] Madeline Souza CNM [address] [place] [address] [address] [place], [place] [id number] Family history of congenital anomalies; , unspecified gestational age Social History Tobacco Use Types Packs/Day Years Used Date Smoking Tobacco: Never Smokeless Tobacco: Never Sex and Gender Information Value Date Recorded Sex Assigned at Female 05/17/2022 1:33 PM EST Gender Identity Not on file Sexual Orientation Straight 05/17/2022 1: 33 PM EST documented as of this encounter Plan of Treatment Scheduled Referrals Name Type Priority Associated Diagnoses Orde r Schedule Referral to Maternal Medicine Outpatient Referral Routine Family history of congenital anomalies , unspecified gestational age Ordered: 04/12/2022 documented as of this encounter Visit Diagnoses Diagnosis Family history of congenital anomalies , unspecified gestational age documented in this encounter Care Teams Principle Software Engineer Relationship Specialty Start Date End Date Melva Santos MD [facility] [address] [place] [address] PCP - General 04/18/10 documented as of this encounter
--- OUTSIDE RECORDS SUMMARY | 2024-07-11 21:27 | XMS_ITS | Encounter Summary ---
[place] [address] Care Team Providers Care Terrazzo Worker Name Role Phone Melva Santos MD Primary Care Provider [phone] Encounter Details Date Type Department Care Team (Latest Contact Info) Description 05/17/2022 Travel Social History Tobacco Use Types Packs/Day [...] on filedocumented in this encounter Care Teams Terrazzo Worker Relationship Specialty Start Date End Date Melva Santos MD [address] [place], [place] [id number] PCP - General 04/18/10 documented as of this encounter
--- OUTSIDE RECORDS SUMMARY | 2024-07-11 21:27 | XMS_ITS | Encounter Summary ---
[place] [address] Care Team Providers Care Electrical Logger Name Role Phone Melva Santos MD Primary Care Provider [phone] Encounter Details Date Type Department Care Team (Late st Contact Info) Description 06/13/2017 Telephone Dermatology at [facility] [address] [place] [address] Chelo Matthews MD Social History Tobacco Use Types Packs/Day Years Used Date Smoking Tobacco: Never Smokeless Tobacco: Never Sex and Gender Information Value Date Recorded Sex Assigned at Female 05/17/2022 1:33 PM EST Gender Identity Not on file Sexual Orientation Straight 05/17/2022 1: 33 PM EST documented as of this encounter Miscellaneous Notes * Telephone Encounter - Penny Dutta - 06/13/2017 2:07 PM EST Spoke with Radha's mother who advised that she is trying to become established with Dr. Peguero's office, as that is closer to home. She will call back if she is unsuccessful in establishing. documented in this encounter Plan of Treatment Not on file documented as of this encounter Visit Diagnoses Not on filedocumented in this encounter Care Teams Electrical Logger Relationship Specialty Start Date End Date Melva Santos MD [address] [place] [address] [address] [place] [address] PCP - General 04/18/10 documented as of this encounter
--- OUTSIDE RECORDS SUMMARY | 2024-07-11 21:27 | XMS_ITS | Encounter Summary ---
Author Organization [facility] [place] [address] Care Team Providers Care Furnace Feeder Name Role Phone Melva Santos MD Primary Care Provider [phone] Reason for Visit * Reason Comments Acne Follow-up Encounter Details Date Type Department Care Team (Late st Contact Info) Description 03/20/2017 1:00 PM EDT Office Visit Dermatology at [address] [phone] Chelo Matthews MD Acne vulgaris (Primary Dx); Psoriasis Social History Tobacco Use Types Packs/Day Years Used Date Smoking Tobacco: Never Smokeless Tobacco: Never Sex and Gender Information Value Date Recorded Sex Assigned at Female 05/17/2022 1:33 PM EST Gender Identity Not on file Sexual Orientation Straight 05/17/2022 1: 33 PM EST documented as of this encounter Progress Notes * Chelo Matthews MD - 03/20/2017 1:00 PM EDT DERMATOLOGY - ESTABLISHED PATIENT FOLLOW-UP Date of service: 03/20/2017 Radha Pires : 2005, 11 y.o. CC: Acne and psoriasis. HPI: Radha Pires is a 11 y.o. female last seen by Dr. Moreno on 02/26/17, here for F/U of acne and psoriasis. Has been treating psoriasis of the armpits and buttocks with Protopic. Reports significant improvements--armpits much less red, and buttock lesions no longer present. Applying fluocinonide solution BID to scalp--minimal improvement. Applying Retin-A 0.025% cream BID in addition to clindamycin BID. Not complaining of dryness and irritation from cream. Thinks acne is improving--though not completely gone. Acne continues to worsen around period. Relevant Skin History: - Okay to leave detailed message with results? Yes - Acne ?? Family History: Melanoma: None Mom - psoriasis (sees Dr. Peguero); treated with Kenalog injections Sister - acne ?? Relevant Social History: - Student - Enjoys dance ?? Medications: Current Outpatient Prescriptions Medication Sig Dispense Refill ??? tretinoin (RETIN-A) 0.025 % Cream apply a pea sized amount to the forehead apply 2-3 times a week (at night), then work up to nightly 45 g 3 ??? clindamycin (CLEOCIN T) 1 % Solution apply every morning to face and shoulders for acne. 60 mL 3 ??? hydrocortisone 2.5 % Cream apply twice daily to affected areas in the armpits and buttocks for two weeks, then switch to Protopic. 30 g 0 ??? tacrolimus (PROTOPIC) 0.1 % Ointment apply twice daily to affected areas in the armpits and buttocks after finishing Hydrocortisone, for maintenance. 60 g 3 ??? fluocinonide (LIDEX) 0.05 % Solution Apply topically once daily to the scalp after showering orjust before bed for 3 weeks, then take a week off. Okay to repeat cycle. 60 mL 0 No current facility-administered medications for this visit. Allergies: No Known Allergies Review of Systems: - General: Feels well. - Skin: No other skin concerns. Examination: -Constitutional: Patient was alert, well-appearing and in no noticeable distress. -Focused examination of the face armpits and scalp was performed today. Diagnosis/Skin findings/Assessment/Plan: 1. Acne vulgaris: Scattered on the forehead and cheeks were closed comedones -Improving, the patient wants further improvement. -Joint decision to increase concentration of Retin-A. Instructed patient to apply only nightly because of the photo labile affect during the day. - Rx: tretinoin 0.05% apply nightly; start every other night, work up to nightly. - Continue with clindamycin solution Qam 2. Psoriasis: Assumption slightly scaly plaques on the armpits. Erythematous plaques on the scalp with fine scaling with involvement of the post auricular scalp. -Psoriasis improving for the axilla. Scalp psoriasis minimal improvement. -Joint decision was made to increase potency of topical solution to the scalp. -Rx: Clobetasol 0.05% solution: apply topically twice daily to the scalp - Continue Protopic cream twice daily to the axilla and buttocks RTC: 2-3 month follow up Note initiated by Maty Dubon CMA. I am documenting this encounter acting as the scribe for and in the presence of Chelo Matthews MD: I performed the above scribed service and agree with the accuracy of the documentation in this encounter. Reviewed and signed by Chelo Matthews MD Resident in Dermatology [facility] Patient seen in conjunction with staff investment banking associate: Sanna Smyth MD Section of Dermatology [facility] * Sanna Smyth MD - 03/20/2017 1:00 PM EDT I directly supervised Dr. Chelo Matthews during this office visit. Dr. Matthews presented the history and physical exam to me. I then saw and examined this patient with Dr. Matthews. We reviewed the history and pertinent details and I confirmed the physical findings. I agree with the details of the history and physical exam as documented in Dr. Matthews's note. SANNA SMYTH MD Staff Physician documented in this encounter Plan of Treatment Not on file documented as of this encounter Visit Diagnoses Diagnosis Acne vulgaris- Primary Other acne Psoriasis Other psoriasis documented in this encounter Care Teams Furnace Feeder Relationship Specialty Start Date End Date Melva Santos MD [address] [place] [address] PCP - General 04/18/10 documented as of this encounter
--- OUTSIDE RECORDS SUMMARY | 2024-07-11 21:27 | XMS_ITS | Encounter Summary ---
Author Organization [facility] Address [facility] [place] [address] Care Team Providers Care Smt Operator Name Role Phone Melva Santos MD Primary Care Provider [phone] Reason for Visit * Reason Comments Psoriasis * Consultation (Routine) - Specialty Diagnoses / Procedures Referred By Contever t Referred To Contact Dermatology Diagnoses Other psoriasis Psoriasis Procedures Psoriasis Melva Santos MD [facility] [address] [facility] [address] [place] [address] [facility] Dermatology [address] [place] [address] Referral ID Status Reason Start Date Expiration Date V isits Requested Visits Authorized [id number] 01/17/2017 01/17/2018 1 1 Encounter Details Date Type Department Care Team (Late st Contact Info) Description 02/26/2017 1:30 PM EDT Office Visit Dermatology at [facility] [address] [place] [address] Lewis Moreno MD [facility] [address] [place] [address] Acne vulgaris; Psoriasis Social History Tobacco Use Types Packs/Day Years Used Date Smoking Tobacco: Never Smokeless Tobacco: Never Sex and Gender Information Value Date Recorded Sex Assigned at Female 05/17/2022 1:33 PM EST Gender Identity Not on file Sexual Orientation Straight 05/17/2022 1: 33 PM EST documented as of this encounter Patient Instructions * Patient Instructions* Franchesca Marcos - 02/26/2017 1:30 PM EDT Instructions for Mingasherh: Acne: Benzoyl peroxide wash (over the counter): once daily (if too drying, can use 3 times a week) --Benzoyl peroxide in a 2-5% concentration is the best face wash to use. This is available over thecounter at most pharmacies, or you can purchase it online. Some good brands include Panoxyl 4% wash, Topix 5% wash, and Neutrogena Clear Pore Cleanser/Mask 3.5% (available on [employer]). Benzoyl peroxide reduces bacteria and also prevents the development of antibiotic resistance. Keep in mind thatthis product may bleach pillowcases and towels, so it's safest to use white linens. Also, be advised that benzoyl peroxide is an eye irritant. Clindamycin solution: apply once daily (in the morning) --This is a topical antibiotic that helps reduce the amount of bacteria on the skin. It should be applied once daily to all acne-prone areas (forehead). Do not spot treat. Tretinoin 0.025% cream: apply 2-3 times a week (at night), then work up to nightly --This is a topical retinoid medication (the brand name is Retin-A). This medication helps unplugclogged pores and prevent the formation of new blackheads. --apply a small pea-sized cream to your fingertips, spread and then apply evenly to all acne-prone areas on the face. Do not spot treat. Avoid areas around the eyes and mouth. --we recommend that you start out by applying 2-3 times weekly, then gradually work up to nightly to minimize redness and dryness --because this medication will make you sensitive to the sun, we recommend using SPF 30 sunscreen daily for the face Psoriasis: - Rx: Hydrocortisone 2.5% cream - apply twice daily to affected areas in the armpits and buttocks for two weeks, then switch to Protopic. - Rx: Protopic ointment - apply twice daily to affected areas in the armpits and buttocks after finishing Hydrocortisone, for maintenance. - Rx: Fluocinonide solution - apply once daily to the scalp after showering or just before bed for 3 weeks, then take a week off. Okay to repeat cycle. - Recommended using OTC Head and Shoulders Shampoo - make sure to let sit for 5- 7 minutes before rinsing it off. For any questions, please call [phone]. documented in this encounter Progress Notes * Lewis Moreno - 02/26/2017 1:30 PM EDT Images from the original note were not included. DERMATOLOGY - NEW PATIENT NOTE Date of service: 02/26/2017 Radha Pires : 2005, 11 y.o. Chief Complaint: Chief Complaint Patient presents with ??? Psoriasis HPI: Radha Pires is a 11 y.o. female referred by Melva Santos with the following concerns: Pt here for dry skin plaques on the the hair, armpits and chin. Noticed 6 months ago. Currently treating with coconut cream in the scalp. Pt also has acne of the back, chest and face. OTC washes unknown names. She was prescribed Ketaconazole for the scalp, but she hasn't felt it has helped much. She has trouble wearing deodorant due to the dry plaques in her armpits. She has not used any Rx acne t reatments. Relevant Skin History: - Okay to leave detailed message with results? Yes -None Family History: Melanoma: None Mom - psoriasis (sees Dr. Peguero); treated with kenalog injections Sister - acne Relevant Social History: - Student - Enjoys [employer] Medical Meds: No current outpatient prescriptions on file. No current facility-administered medications for this visit. Allergies: No Known Allergies Review of Systems: - General: Feels well. - Skin: No other skin concerns. Examination: - Constitutional: Patient was alert, well-appearing and in no noticeable distress. - Skin: Patient was asked to disrobe to the level of their comfort. Examination of skin from the waist up was performed. This includes examination of the skin of the face, ears, neck, chest, axillae,left and right upper extremities, hands, back, and abdomen. Diagnosis/Skin findings/Assessment/Plan: 1. Acne Vulgaris, mild to moderate - Few scattered inflammatory papules and closed comedones and forehead and upper back. - Rx: Tretinoin 0.025% cream - apply a pea sized amount to the forehead apply 2- 3 times a week (at night), then work up to nightly. - Rx: Clindamycin solution - apply once daily (in the morning). - Recommended using an OTC benzoyl peroxide wash such as Panoxyl 2-3 times per week. 2. Psoriasis - axillae: well demarcated pink slightly scaly plaques. Scalp: thin well-demarcated pink plaques with significant flaky white scale. Thin pink plaque between gluteal fold. - LACIE testing of the skin scraping was negative for fungal elements. - Strongly favor a diagnosis of psoriasis. Scalp could be paige derm, but it has not responded to therapy for paige derm. - Rx: Hydrocortisone 2.5% cream - apply twice daily to affected areas in the armpits and buttocks for two weeks, then switch to Protopic. - Rx: Protopic cream - apply twice daily to affected areas in the armpits and buttocks after finishing Hydrocortisone, for maintenance. - Rx: Fluocinonide solution - apply once daily to the scalp after showering or just before bed for 3 weeks, then take a week off. Okay to repeat cycle. - Recommended continue using OTC Head and Shoulders Shampoo - make sure to let sit for 5-7 minutes before rinsing it off. RTC: March 20 for f/u psoriasis, acne (patient's mom requests that they be able to coordinate with sister's appointment at [facility]). Note initiated by Maty Dubon CMA. Clinical scribe: Franchesca Marcos - I am documenting this encounter acting as the scribe for and in the presence of Lewis Moreno MD. I performed the above scribed service and agree with the accuracy of the documentation in this encounter. Reviewed and signed by Lewis Moreno MD Resident in Dermatology [facility] Patient seen in conjunction with staff crewman armoured personnel carrier [id number]: Rochelle Sandoval MD Section of Dermatology [facility] * Rochelle Sandoval MD - 02/26/2017 1:30 PM EDT I directly supervised Dr. Lewis Moreno during this office visit. Dr. Moreno presented the history and physical exam to me. I then saw and examined this patient with Dr. Moreno. We reviewed the history and pertinent details and I confirmed the physical findings. I agree with the details of the history and physical exam as documented in Dr. Moreno's note. ROCHELLE SANDOVAL MD Staff Physician documented in this encounter Plan of Treatment Not on file documented as of this encounter Visit Diagnoses Diagnosis Acne vulgaris Other acne Psoriasis Other psoriasis documented in this encounter Care Teams Smt Operator Relationship Specialty Start Date End Date Melva Santos MD [address] [place] [address] [address] [place] [address] PCP - General 04/18/10 documented as of this encounter
--- NOTE | 2024-07-11 22:07 | ED.GENADUL_ITS ---
Discharge Plan Disposition Patient Disposition: Home Condition: Stable Discharge Details Clinical Impression: Cerumen impaction, Otalgia Primary Care Provider: Melva Santos ED Provider: Esther Xie Home Meds and New Rx's Prescriptions: Continued amoxicillin-pot clavulanate 875-125 mg tablet 1 tab PO Q12H PNV,calcium 70-eygj-wnprg acid 27 mg iron- 1 mg tablet 1 tab PO DAILY Qty: 90 0RF Rx Instructions: give with food (meal/snack) Discharge Instructions Instructions: Ear Wax Impaction ED, Ear Pain ED Additional Instructions: motrin 600 mg every 8 hours as needed for pain if you have persistent pain, please be reevaluated in 24 hours return earlier should you have new or worsening complaints Referrals: Melva Santos MD [Primary Care Provider] - 1 day HPI General Date/Time Provider Initiated Documentation: 07/11/24 20:04 . HPI Narrative: The patient is a 18-year-old female who is otherwise healthy, presents with left ear pain that started abruptly this evening. She reports no fevers or chills and had no symptoms earlier. She has had a runny nose intermittently for the past several months. Related Data Home Medications ?Medication ?Instructions ?Recorded ?Confirmed vitamin with calcium 1 tab PO DAILY #90 tabs 03/29/22 07/11/24 no.72-iron 27 mg-folic acid 1 mg tablet amoxicillin 875 mg-potassium 1 tab PO Q12H 02/17/24 07/11/24 clavulanate 125 mg tablet Previous Rx's ?Medication ?Instructions ?Recorded vitamin with calcium 1 tab PO DAILY #90 tabs 03/29/22 no.72-iron 27 mg-folic acid 1 mg tablet Allergies Allergy/AdvReac Type Severity Reaction Status Date / Time seasonal Allergy rhinitus Uncoded 07/11/24 20:01 cats AdvReac Mild Hives Uncoded 07/11/24 20:01 dogs AdvReac Mild Hives Uncoded 07/11/24 20:01 General Stated Complaint: EarProblem PRESTON: 4 Exam Narrative Exam Narrative: General Appearance: The patient is not in acute distress. Vital signs: Vitals were stable. HEENT: There is cerumen impaction in both ears, but the tympanic membrane is visible. No sinus tenderness. No mastoid tenderness. Respiratory: Lungs are clear to auscultation. Skin: Warm and dry, no rash. Neurological: Normal. Course Vital Signs Vital signs: Vital Signs Pulse 92 H 07/11/24 19:59 Respiratory Rate 18 07/11/24 19:59 Blood Pressure 153/79 H 07/11/24 19:59 Pulse Oximetry 100 07/11/24 19:59 Temperature 36.2 C L 07/11/24 20:02 Temperature Source Tympanic 07/11/24 20:02 Pulse 92 H 07/11/24 19:59 Respiratory Rate 18 07/11/24 19:59 Blood Pressure 153/79 H 07/11/24 19:59 Blood Pressure Position Sitting 07/11/24 19:59 Pulse Oximetry 100 07/11/24 19:59 Oxygen Delivery Method Room Air 07/11/24 19:59 Oxygen Flow Rate 0 07/11/24 19:59 Procedure Ear Wax Removal Procedure Description/Note: The patient's ear was irrigated for approximately 90 minutes after placing hydrogen peroxide and Colace. Medical Decision Making Initial Assessment: 18-year-old female with abrupt onset of left ear pain this evening, no fever or chills, intermittent runny nose for several months, cerumen impaction in both ears. ED Course: - Ear irrigation performed for approximately an hour and a half after placing hydrogen peroxide and Colace. - Scant amount of cerumen remains, no obvious visualized infection. - Tympanic membrane not perforated. - Administered dose of Motrin for pain relief. - Advised to use hydrogen peroxide at home for further cerumen management. - Return precautions reviewed and patient expressed understanding. - Discharged home in stable condition with stable vitals. Final Assessment: No clear indication of ear infection or need for antibiotic treatment. Tympanic membrane intact, no visible infection. Pain managed with Motrin, and patient instructed on home care for cerumen management. Clinical Impression: - Left ear pain Disposition: - Discharge: Patient discharged home in stable condition. MDM Components Evaluation: - Number of Differential Diagnoses or Management Options: Left ear pain - Amount and Complexity of Data Reviewed: Physical examination, ear irrigation procedure - Risk of Complication and Morbidity or Mortality: Low risk, no signs of infection or perforation, stable vitals. Quality:SDOH Health Related Social Needs: No Data to Display PFSH All Active Problems Otalgia (Acute) Cerumen impaction (Acute) (Acute) Missed menses (Acute) Lower back pain (Acute) Upper back pain (Acute) Anxiety (Chronic) Marijuana use (Acute) Medical History (Updated 07/11/24 @ 22:02 by JOEY Palmer) Family history of congenital heart defect Chronic sinusitis (11/29/14) Abnormal auditory perception (05/30/15) Psoriasis Acne Depression Flank pain Surgical History History of tonsillectomy Family History (Updated 04/10/22 @ 13:37 by Madeline Souza CNM) Mother Substance use disorder Clayton and her sister had to move in with Paternal Grandparents at age 3 then returned to her Mother's custody at age 11 Depression Psoriasis Eczema Maternal Grandmother Dementia Diabetes Self Depression Psoriasis Sister Depression Eczema Paternal Grandmother Diabetes Paternal Grandfather Diabetes Hyperlipidemia Hypertension Maternal Aunt Heart disease Stroke age 26. Substance use disorder Heart defect flap in the heart that did not close. Social History Smoking/Tobacco Use Status: Never Smoking risk assessment performed?: Yes Alcohol Intake: never Drug use: Never Substance use type: does not use Do you feel safe at home: Yes Do you feel safe in your relationship?: Yes Additional Social history: unable to assess privately History History 2 Para 1 Hx # Term Pregnancies 1 Multiple births 0 Hx # Pregnancies 0 Ectopic pregnancies 0 AB induced 1 Hx Number of Living Children 1 AB spontaneous 0 Past Pregnancies Del. Date GA/Weeks # Preg Succ Route Wgt Sex Labor Lgth Anesth esia Location [facility] 10/12/22 41 No Yes vaginal 2924.82 g Female 8hrs 50min regional [facility]
[2024-07-11] MEDS: Ibuprofen 600 MG TAB PO (22:12)
== END 2024-07-11 22:11 | disposition home or self-care (01) ==
PROVIDERS: Emergency Provider Physician Assistant; PCP Family Medicine
DX: H61.22 Impacted cerumen, left ear (principal); H92.02 Otalgia, left ear
CPT/HCPCS: 69209; 99283

== ENCOUNTER 2024-08-26 02:14 | Outpatient (CLI) | payer MEDICAID, SELFPAY ==
--- NOTE | 2024-08-26 07:45 | DI.US_ITS ---
Exam(s) US OB 1ST TRIMESTER EXAM: US OB 1ST TRIMESTER CLINICAL HISTORY: dating [id number]. TECHNIQUE: Transabdominal obstetrical ultrasound performed. COMPARISON: US US OB DUSTIN WEIGHT from 09/19/2022 US POCUS EXAM from 08/25/2024 FINDINGS: Number of fetuses: 1. motion was noted during the examination. BIOMETRIC DATA: BPD: 2.21cm, 13weeks 4days HC: 8.57cm, 13weeks 5days AC: 6.87cm, 13weeks 3days FL: 0.99cm, 13weeks EFW: 72.61g, 0.16lb, Composite Age: 13weeks 3days DORI: 02/28/2025 Heart Rate: 159bpm Amniotic fluid index: . Visually, amount of fluid is within normal limits. Pelvic Measurments Uterus: 11.8 long by 7.8 AP by 8.1 transverse cm Rt Ovary: 3.2 x 2.4 x 2.4 cm Lt Ovary: The left ovary was not visualized on this examination. IMPRESSION: 1. Single live intrauterine gestation as above. 2. Estimated gestational age is 13 weeks 3 days. DATA REPOSITORY:
== END 2024-08-26 02:34 ==
LOC: DI 02:14
PROVIDERS: PCP Family Medicine; Visit Provider Obstetrics & Gynecology
DX: Z3A.14 14 weeks gestation of pregnancy (principal); Z34.82 Encounter for supervision of other normal pregnancy, second trimester
CPT/HCPCS: 76801

== ENCOUNTER 2024-08-27 03:24 | Outpatient (CLI) | payer MEDICAID, SELFPAY ==
[2024-08-27 10:50] LABS: Panorama Kit Sent via Fed Ex
[2024-08-27 10:59] LABS: Abs Immature Grans 0.03 10^3/uL (0.0-0.06); Absolute Basophil Count 0.02 10^3/uL (0.0-0.2); Absolute Eosinophil Count 0.05 10^3/uL (0.0-0.7); Absolute Lymphocyte Count 2.42 10^3/uL (1.2-3.4); Absolute Monocyte Count 0.58 10^3/uL (0.1-0.8); Absolute Neutrophil Count 6.14 10^3/uL (1.2-6.7); Basophils % 0.2 %; Eosinophils % 0.5 %; HCT 38.1 % (36.0-46.0); HGB 12.8 g/dL (11.2-15.7); Immature Grans % 0.3 %; Lymphocytes % 26.2 %; MCH 29.2 pg (27.0-33.0); MCHC 33.6 % (32.0-36.0); MCV 87 fL (80-95); MPV 9.4 fL (8.0-11.0); Monocytes % 6.3 %; Neutrophils % 66.5 %; Platelet Count 298 10^3/uL (130-400); RBC 4.39 10^6/uL (3.93-5.22); RDW 14.4 % (11.7-14.6); RDW-SD 46.3 fL; WBC 9.24 10^3/uL (4.4-10.8)
[2024-08-27 11:17] LABS: Hemoglobin A1C 5.3 % (<5.7)
[2024-08-27 19:03] LABS: Hepatitis B Surface Ag Negative (Negative)
[2024-08-27 19:34] LABS: HIV-1/2 Ag & Ab Screen Negative (Negative)
[2024-08-27 19:40] LABS: Hepatitis C Ab w Rflx HCV PCR Negative (Negative)
[2024-08-28 11:50] LABS: Rubella IgG Ab (UVM) Positive (See Note)
[2024-08-28 11:57] LABS: Varicella IgG Antibody Positive (See Note)
[2024-08-29 12:46] LABS: Syphilis IgG w/Reflex Nonreactive (Nonreactive)
== END 2024-08-27 03:25 | disposition home or self-care (01) ==
LOC: LBO 03:24
PROVIDERS: PCP Family Medicine; Visit Provider Advanced Practice Midwife
DX: Z34.91 Encounter for supervision of normal pregnancy, unspecified, first trimester (principal); Z68.31 Body mass index [BMI] 31.0-31.9, adult
CPT/HCPCS: 36415; 86787; 86803; 86850; 86900; 86901; 87340; 87389; 83036; 85025; 86762; 86780

== ENCOUNTER 2024-08-27 09:15 | Outpatient (REF) | payer MEDICAID, SELFPAY ==
[2024-08-27 13:05] LABS: *AMPHETAMINES SCREEN URINE Negative (Negative); *BARBITURATES SCREEN URINE Negative (Negative); *BENZODIAZEPINES SCREEN URINE Negative (Negative); Cannabinoids THC Positive (Negative); Cocaine Screen,Urine Negative (Negative); METHADONE URINE SCREEN Negative (Negative); OPIATES URINE SCREEN Negative (Negative); Tricyclic Antidepressants Negative (Negative)
[2024-08-28 12:09] LABS: Fentanyl Scr w/Rfx Confirm Negative ng/mL (<1)
[2024-08-28 12:59] LABS: Chlamydia Result Negative (Negative); GC Result Negative (Negative)
[2024-09-02 11:08] LABS: Buprenorphine Negative ng/mL (Cutoff: 5.0); Norbuprenorphine Negative ng/mL (Cutoff: 2.5)
== END 2024-08-27 09:16 | disposition home or self-care (01) ==
LOC: LBN 09:15
PROVIDERS: PCP Family Medicine; Visit Provider Advanced Practice Midwife
DX: Z34.91 Encounter for supervision of normal pregnancy, unspecified, first trimester (principal); F12.90 Cannabis use, unspecified, uncomplicated
CPT/HCPCS: 80307; 80348; 87491; 87591; 87086

== ENCOUNTER 2024-09-23 15:10 | Outpatient (CLI) | payer MEDICAID, SELFPAY ==
[2024-09-28 15:23] LABS: AFP 45.8 ng/mL; Calculated age at EDD 20 years; Cigarette smoking status non-Smoker; GA used in risk estimate Scan estimate; IVF Pregnancy No; Initial or repeat testing Initial testing; Insulin dependent diabetes No; Maternal Weight 176 lbs; Number of Fetuses 1; Prev Pregnancy w/NTD No; RECOMMENDED FOLLOW UP None.; Results Summary Normal risk
== END 2024-09-23 15:11 | disposition home or self-care (01) ==
LOC: LBO 15:10
PROVIDERS: PCP Family Medicine; Visit Provider Advanced Practice Midwife
DX: Z34.90 Encounter for supervision of normal pregnancy, unspecified, unspecified trimester (principal)
CPT/HCPCS: 36415; 82105

== ENCOUNTER 2024-12-09 02:49 | Outpatient (CLI) | payer MEDICAID, SELFPAY ==
[2024-12-09 12:02] LABS: HCT 35.4 % (36.0-46.0); HGB 11.7 g/dL (11.2-15.7); MCH 30.0 pg (27.0-33.0); MCHC 33.1 % (32.0-36.0); MCV 91 fL (80-95); MPV 9.6 fL (8.0-11.0); Platelet Count 314 10^3/uL (130-400); RBC 3.90 10^6/uL (3.93-5.22); RDW 14.0 % (11.7-14.6); RDW-SD 46.6 fL; WBC 14.63 10^3/uL (4.4-10.8)
[2024-12-09 12:20] LABS: Glucose,1 Hr (Glucola) 102 mg/dL (80-140)
== END 2024-12-09 02:50 | disposition home or self-care (01) ==
LOC: LBO 02:49
PROVIDERS: PCP Family Medicine; Visit Provider Advanced Practice Midwife
DX: Z34.92 Encounter for supervision of normal pregnancy, unspecified, second trimester (principal)
CPT/HCPCS: 36415; 82950; 85027

== ENCOUNTER 2024-12-23 11:31 | Outpatient (REF) | payer MEDICAID, SELFPAY ==
[2024-12-23 14:12] LABS: Cannabinoids THC Positive (Negative); METHADONE URINE SCREEN Negative (Negative)
[2024-12-24 12:18] LABS: Fentanyl Scr w/Rfx Confirm Negative ng/mL (<1)
== END 2024-12-23 11:32 | disposition home or self-care (01) ==
LOC: LBN 11:31
PROVIDERS: Advanced Practice Midwife; PCP Family Medicine; Visit Provider Advanced Practice Midwife
DX: Z34.93 Encounter for supervision of normal pregnancy, unspecified, third trimester (principal); O99.323 Drug use complicating pregnancy, third trimester; F19.10 Other psychoactive substance abuse, uncomplicated
CPT/HCPCS: 80307; 80348

== ENCOUNTER 2025-02-03 03:01 | Outpatient (CLI) | payer MEDICAID, SELFPAY ==
--- NOTE | 2025-02-03 06:00 | DI.US_ITS ---
Exam(s) US OB DUSTIN WEIGHT EXAM: US OB DUSTIN WEIGHT CLINICAL HISTORY: S<[id number]. TECHNIQUE: Transabdominal obstetrical ultrasound performed. COMPARISON: US US OB 1ST TRIMESTER from 08/26/2024 FINDINGS:: Number of fetuses: 1 position: CEPHALIC, spine anterior Placental location: ANTERIOR No evidence of previa. BIOMETRIC DATA: BPD: 8.46cm, 34weeks 1day HC: 30.55cm, 34weeks AC: 29.57cm, 33weeks 4days FL: 6.15cm, 31weeks 6days EFW: 2,136.12g, 4lb 12.82oz, <3% Composite Age: 33weeks 3days DORI: 03/21/2025 Heart Rate: 150bpm Amniotic fluid index: 12.52cm. Visually, amount of fluid is within normal limits. Umbilical artery Doppler measurements were performed. The pulsatility index, resistive index and ST ratio or pole within the normal range. IMPRESSION: size is measuring 3 weeks less than the expected range. Estimated weight is below the 3rd percentile. The local artery Doppler measurements were within the normal range. DATA REPOSITORY:
== END 2025-02-03 03:21 ==
LOC: DI 03:01
PROVIDERS: PCP Family Medicine; Visit Provider Advanced Practice Midwife
DX: O26.843 Uterine size-date discrepancy, third trimester (principal); Z3A.34 34 weeks gestation of pregnancy
CPT/HCPCS: 76816

== ENCOUNTER 2025-02-03 14:55 | Outpatient (REF) | payer MEDICAID, SELFPAY | END 2025-02-03 14:56 | disposition home or self-care (01) | LOC: LBN 14:55 | PROVIDERS: PCP Family Medicine; Visit Provider Advanced Practice Midwife | DX: Z34.91 Encounter for supervision of normal pregnancy, unspecified, first trimester (principal) | CPT/HCPCS: 87081 ==

== ENCOUNTER 2025-02-04 07:36 | Outpatient (CLI) | payer MEDICAID, SELFPAY ==
[2025-02-04 15:56] VITALS: BP 118/66; PULSE 101; RESP 18
[2025-02-04 16:09] VITALS: BP 118/66; PULSE 101
--- NOTE | 2025-02-04 17:40 | W.OBNST ---
Date of service: 02/04/25 Time of Service: 17:41 NST Evaluation Reason for NST Reasons for Nonstress Test: INTRA-UTERINE GROWTH RES Gestational Age Gestational Age in Weeks and Days: 36 Weeks and 4Days Test and Monitor Explained Test/Monitor Explained: Test Explained, Monitor Explained and Patient Verbalized Understanding Vital Signs Blood Pressure: 118/66 Pulse: 101 Urine Results Urine Protein: Positive Urine Ketones: Negative Urine Glucose: Negative Urine Blood: Negative NST Information Date on Monitor: 02/04/25 Time on Monitor: 15:32 Date off Monitor: 02/04/25 Time off Monitor: 16:40 Total Time on Monitor: 68 NST Interventions: PO Hydration Contraction Frequency: Rare, some irritability present most likely due to dehydration NST Evaluation Patient States Movement: Present FHR Baseline: 150 Variability: Moderate 6-25 bpm Accelerations: 15x15 Decelerations: None NST Results: Reactive Note Ultrasound Done: N/A. NST Note Note: Weekly NST due to growth restriction noted on US yesterday with femur length 31+ 6 weeks. Reactive NST. Radha was dehydrated upon arrival and she was provide PO fluids. Continued adequate fluid intake recommended. I discussed options with Radha and her partner including IOL at 37 weeks, Continued antepartum testing including doppler studies or level 2 US at [facility]. They prefer level 2 US at [facility] and referral was placed. NST Reviewed and Verified by: Madeline Souza
[2025-02-04 17:43] VITALS: BP 118/66; PULSE 101
== END 2025-02-04 17:00 ==
LOC: BCD 07:40 → OBS 15:48
PROVIDERS: PCP Family Medicine; Visit Provider Obstetrics & Gynecology
DX: O36.5931 Maternal care for other known or suspected poor fetal growth, third trimester, fetus 1 (principal); Z3A.36 36 weeks gestation of pregnancy
CPT/HCPCS: 59025

== ENCOUNTER 2025-02-06 11:24 | Outpatient (CLI) | payer MEDICAID, SELFPAY ==
[2025-02-06 13:10] VITALS: TEMP 36.8
--- NOTE | 2025-02-06 13:23 | W.OBNST ---
Date of service: 02/06/25 Time of Service: 16:00 NST Evaluation Reason for NST Reasons for Nonstress Test: INTRA-UTERINE GROWTH RES Gestational Age Gestational Age in Weeks and Days: 36 Weeks and 4Days Test and Monitor Explained Test/Monitor Explained: Test Explained, Monitor Explained and Patient Verbalized Understanding NST Information NST Interventions: PO Hydration NST Evaluation Patient States Movement: Present Variability: Moderate 6-25 bpm Accelerations: 15x15 Decelerations: None NST Results: Reactive Note Ultrasound Done: N/A. NST Note Note: Radha is a 19-year-old at 36+4 here for NST secondary to new diagnosis of growth restriction last week. She has been recommended induction at 37+0 in two days on 02/08, but strongly wants to have confirmation of the diagnosis done by [facility] and need for IOL. Her [facility] consult and ultrasound are scheduled for Saturday, 02/10 after which, if diagnosis is confirmed, she will proceed with IOL. She is amenable to labs (CMV, Toxo & Parvovirus today; Pt already completed RPR, HIV, Rubella and Varicella during ) as well as baseline pre-eclampsia labs. NST Reviewed and Verified by: Sridevi Bedoya
[2025-02-06 14:49] LABS: HCT 31.0 % (36.0-46.0); HGB 10.6 g/dL (11.2-15.7); MCH 30.4 pg (27.0-33.0); MCHC 34.2 % (32.0-36.0); MCV 89 fL (80-95); MPV 9.7 fL (8.0-11.0); Platelet Count 403 10^3/uL (130-400); RBC 3.49 10^6/uL (3.93-5.22); RDW 13.3 % (11.7-14.6); RDW-SD 43.6 fL; WBC 16.70 10^3/uL (4.4-10.8)
[2025-02-06 15:04] LABS: ALT 12 U/L (14-59); AST 13 U/L (15-37); Albumin 2.7 g/dL (3.4-5.0); Alkaline Phosphatase 158 U/L (46-116); Anion Gap 10.6 mmol/L (3-11); BUN 6 mg/dL (7-18); Bilirubin, Total 0.3 mg/dL (0.2-1.0); CO2 23.4 mmol/L (21.0-32.0); Calcium 8.9 mg/dL (8.5-10.1); Chloride 104 mmol/L (98-107); Estimated GFR 145.22 (mL/min/1.73m2); Glucose 93 mg/dL (74-106); Potassium 3.4 mmol/L (3.5-5.1); Sodium 138 mmol/L (136-145); Total Protein 6.4 g/dL (6.4-8.2); Uric Acid 4.0 mg/dL (2.6-6.0)
[2025-02-06 15:30] LABS: PROTEIN 18.9 mg/dL; Prot/Crea Ur Ratio 0.15
[2025-02-09 15:09] LABS: CMV Ab, IgM Negative (Negative)
[2025-02-10 14:30] LABS: Parvovirus B19 Ab, IgG Negative (Negative); Parvovirus B19 Ab, IgM Negative (Negative)
== END 2025-02-06 14:35 | disposition home health service (06) ==
LOC: BCD 11:31 → OBS 13:09
PROVIDERS: PCP Family Medicine; Visit Provider Advanced Practice Midwife
DX: Z3A.36 36 weeks gestation of pregnancy (principal); O26.843 Uterine size-date discrepancy, third trimester
CPT/HCPCS: 80053; 85027; 86850; 86900; 86901; 59025; 82565; 84156; 84550; 86644; 86645; 86747; 86777; 86778

== ENCOUNTER 2025-02-09 07:24 | Outpatient (CLI) | payer MEDICAID, SELFPAY ==
[2025-02-09 15:15] VITALS: BP 125/67; PULSE 99; TEMP 36.8
--- NOTE | 2025-02-09 16:34 | PDOC.NST_ITS ---
Date of service: 02/09/25 Time of Service: 16:34 NST Evaluation Reason for NST Reasons for Nonstress Test: INTRA-UTERINE GROWTH RES Gestational Age Gestational Age in Weeks and Days: 37 Weeks and 2Days Test and Monitor Explained Test/Monitor Explained: Test Explained, Monitor Explained and Patient Verbalized Understanding Vital Signs Blood Pressure: 125/67 Pulse: 99 Temperature: 98.2 F Urine Results Urine Protein: Positive Urine Ketones: Positive Urine Glucose: Negative Urine Blood: Negative NST Information Date on Monitor: 02/09/25 Time on Monitor: 15:04 Date off Monitor: 02/09/25 Time off Monitor: 15:47 Total Time on Monitor: 43 NST Interventions: PO Hydration Contraction Frequency: None NST Evaluation Patient States Movement: Present FHR Baseline: 135 Variability: Moderate 6-25 bpm Accelerations: 15x15 Decelerations: None NST Results: Reactive Note Ultrasound Done: N/A. NST Note Note: [facility] consult tomorrow Next NST scheduled for Saturday Pt to call if [facility] recommends IOL this week. NST Reviewed and Verified by: Anne Caal
[2025-02-09 16:35] VITALS: BP 125/67; PULSE 99; TEMP 36.8
== END 2025-02-09 16:00 ==
LOC: BCD 07:24 → OBS 15:14
PROVIDERS: PCP Family Medicine; Visit Provider Advanced Practice Midwife
DX: O36.5931 Maternal care for other known or suspected poor fetal growth, third trimester, fetus 1 (principal); Z3A.37 37 weeks gestation of pregnancy
CPT/HCPCS: 59025

== ENCOUNTER 2025-02-10 14:16 | Outpatient (CLI) | payer MEDICAID, SELFPAY ==
[2025-02-10 17:01] VITALS: BP 117/67; PULSE 98
[2025-02-10 17:15] VITALS: BP 117/67; PULSE 98; RESP 16; TEMP 36.6; TEMP 36.7
--- NOTE | 2025-02-10 17:49 | W.OBCONSULT ---
Date of service: 02/10/25 Time of Service: 17:49 Assessment and Plan Assessment and plan (1) : Status: Acute (2) growth restriction antepartum: Status: Acute Assessment and plan: In light of severe growth restriction at 37 weeks and 3 days would strongly encourage patient to stay today, to commence labor induction. She is requesting discharge home to follow-up in the morning. Precautions were given. Data Entry Supervisor will also be present this evening to have conversation regarding the care and management of a baby with growth restriction, small for gestational age. Reassurance was given. Support was given. All questions answered. History of Present Illness History of Present Illness Chief Complaint: Intrauterine growth restriction, less than the third centile Narrative: Kindly asked to see in consultation this 19-year-old 3 para 1 who is currently at 37 weeks and 3 days. She has known intrauterine growth restriction which was based on ultrasound performed here, confirmed with maternal- medicine evaluation at [facility] today. She had cord Dopplers today which looked appropriate. In light of the fact that she is at 37 weeks and 3 days, with known severe growth restriction, the recommendation is for labor induction. Over the course of 30 minutes with the patient, support person, and Karlene Caal CNM, we discussed the appropriate nature of labor induction at this point. She is aware of the risk, benefits, and alternatives of labor induction. She was also counseled on the risks associated with ongoing , increased risk for poor outcome, increased risk for , increased risk for need for further intervention. At this point, patient would like to go home to be with her daughter prior to labor induction first thing in the morning. Again, she was offered to stay the night, begin her labor induction, go home, retrieve her bag and return this evening, and she opts for labor induction tomorrow. During our conversation, we also discussed methods of labor induction. Most recent cervical exam found her to be 2 cm, and favorable. She does have an active with a heart rate baseline in the 150s, moderate variability, accelerations, and movement. She is having uterine activity with irregular, mild contractions approximately every 2 minutes. She is not perceiving these as strong contractions. To the best of my ability, we addressed her fears, concerns, and apprehension. We also assured her that we would support her decision making process, though the recommendation still stands for labor induction at this point. Consults Consult date: 02/10/25 Requesting physician: Anne Caal Review of Systems All systems reviewed & are unremarkable except as noted in HPI and below Eyes Eyes: Reports as per HPI and Reports system reviewed and no additional complaints, except as documented ENT Ears, Nose, Mouth, and Throat: Reports system reviewed and no additional complaints, except as documented and Reports as per HPI Cardiovascular Cardiovascular: Reports system reviewed and no additional complaints, except as documented, Denies chest pain and Denies irregular heart rhythm Respiratory Respiratory: Reports system reviewed and no additional complaints, except as documented, Denies chest congestion and Denies cough Gastrointestinal Gastrointestinal: Reports system reviewed and no additional complaints, except as documented Genitourinary Genitourinary: Reports system reviewed and no additional complaints, except as documented Neurologic Neurologic: Reports system reviewed and no additional complaints, except as documented PFSH All Active Problems growth restriction antepartum (Acute) Baby confirmed at less than the 3rd percentile. Negative TORCH titers. Negative workup for preeclampsia. Uterine size date discrepancy (Acute) BMI 31.0-31.9,adult (Acute) (Acute) Lower back pain (Acute) Upper back pain (Acute) Anxiety (Chronic) Marijuana use (Acute) Medical History (Updated 02/10/25 @ 17:54 by Joie Barnes DO) Family history of congenital heart defect Chronic sinusitis (11/29/14) sinus procedure ay [facility] at age 10 -11 Psoriasis Acne Depression Flank pain Surgical History History of tonsillectomy Family History (Updated 08/20/24 @ 13:23 by Rosette Roldan CNM) Mother Substance use disorder Clayton and her sister had to move in with Paternal Grandparents at age 3 then returned to her Mother's custody at age 12 Depression Psoriasis Eczema Maternal Grandmother Dementia Diabetes Self Depression Psoriasis Sister Depression Eczema Paternal Grandmother Diabetes Paternal Grandfather Diabetes Hyperlipidemia Hypertension Advanced cirrhosis of liver Maternal Aunt Heart disease Stroke age 26. Substance use disorder Heart defect flap in the heart that did not close. Social History (Updated 08/20/24 @ 13:28 by Rosette Roldan CNM) Smoking/Tobacco Use Status: Former Tobacco Use Tobacco: How many years used: 5 Smokeless tobacco user: other Second Hand Exposure: Yes Smoking risk assessment performed?: Yes Alcohol Intake: former Drug use: Daily Substance use type: marijuana Counseling given: Yes Counseling provided: provider counseling Household members: significant other Housing: apartment Number of Children: 1 Communication Needs: None Education Level: high school Do you need help understanding health information?: Never current occupation: [employer] Pets and animals: Yes Pets and animals: dog(s) Sexually active: Yes Do you think of yourself as: straight/heterosexual Current gender identity: female What is your relationship status?: living with partner Panel score (0-1 are the most socially isolated patients): 1 What type of physical activity do you participate in: walking and occasional exercise Special neto needs: No Agree to transfusion: Yes Do you feel safe at home: Yes Do you feel safe in your relationship?: Yes Additional Social history: unable to assess privately History History 3 Para 1 Hx # Term Pregnancies 1 Multiple births 0 Hx # Pregnancies 0 Ectopic pregnancies 0 AB induced 1 Hx Number of Living Children 1 AB spontaneous 0 Past Pregnancies Del. Date GA/Weeks # Preg Succ Route Wgt Sex Labor Lgth Anesthesia Location Prov Complic 10/12/22 41 No Yes vaginal 6 lb 7.17 oz Female 8hrs 50min regional [facility] Delivery Date: 10/12/22 Last Updated by: KRISTA Lam Results Last Vital Signs Temp 97.9 F 02/10/25 17:15 Pulse 98 H 02/10/25 17:15 Resp 16 02/10/25 17:15 BP 117/67 02/10/25 17:15
--- NOTE | 2025-02-10 18:16 | W.OBNST ---
Date of service: 02/10/25 Time of Service: 18:16 NST Evaluation Reason for NST Reasons for Nonstress Test: INTRA-UTERINE GROWTH RES Gestational Age Gestational Age in Weeks and Days: 37 Weeks and 3Days Test and Monitor Explained Test/Monitor Explained: Test Explained and Monitor Explained Vital Signs Blood Pressure: 117/67 Pulse: 98 Temperature: 98.1 F NST Information Date on Monitor: 02/10/25 Time on Monitor: 16:55 Date off Monitor: 02/10/25 Time off Monitor: 18:05 Total Time on Monitor: 70 NST Interventions: PO Hydration Contraction Frequency: mild q2-3 Comments: pt states she does not feel any contractions NST Evaluation Patient States Movement: Present FHR Baseline: 155 Variability: Moderate 6-25 bpm Accelerations: 15x15 Decelerations: Variable NST Results: Reactive Note Ultrasound Done: N/A. NST Note Note: Pt returning in the morning for IOL for IUGR Cvx 2/60% posterior and soft, vtx -2 Dr. Barnes in to discuss risks of delaying IOL, pt declines IOL tonight but will return in the morning Dr. Barajas in at pt request to discuss care of a SGA infant NST Reviewed and Verified by: Anne Caal
[2025-02-10 18:18] VITALS: BP 117/67; PULSE 98; TEMP 36.7
== END 2025-02-10 18:10 ==
LOC: BCD 14:17 → OBS 16:56
PROVIDERS: PCP Family Medicine; Visit Provider Advanced Practice Midwife
DX: O36.5931 Maternal care for other known or suspected poor fetal growth, third trimester, fetus 1; Z3A.37 37 weeks gestation of pregnancy
CPT/HCPCS: 59025

== ENCOUNTER 2025-02-11 06:50 | Inpatient (IN) | payer MEDICAID, SELFPAY ==
[2025-02-11] VITALS (83 sets, daily range): BP systolic 111–134; BP diastolic 61–80; PULSE 0–91; RESP 16–17; TEMP 36.5–36.8; O2SAT 92–100; BMI 30.2
--- NOTE | 2025-02-11 09:05 | W.PM.OBHPL1 ---
Date of service: 02/11/25 Time of Service: 09:00 Assessment and Plan Assessment and plan (1) Encounter for induction of labor: Status: Acute Assessment and plan: A: 19 yo @ 37+4 wks, scheduled IOL, favorable cvx w/gallegos score 6-7 Category 1 tracing today, EFW <3rd percentile, repeat eval at [facility] is consistent BPP 01/01 yesterday with nml cord dopplers and nml DUSTIN No increased risk for SD or PPH P: Admit to L&D, CBC and T&S, plan AROM after informed consent discussed w/pt Anticipate , Dr. Figueredo consulting, Peds will be notified (2) growth restriction antepartum: Status: Acute OB-HPI Labor/Delivery History of Present Illness Reason for Visit: IUGR, Induction of Labor 37 wks Chief Complaint: Scheduled Induction of Labor (IUGR) Indication for Induction: Intrauterine Growth Restriction/ Growth Restriction. DORI Calculator Estimated Delivery Date Method Current WG Current Estimate 02/28/25 Ultrasound #2 37w 4d Other Estimates 02/04/25 LMP (Uncertain) 41w 0d 02/25/25 Ultrasound #1 38w 0d History of Present Expected Delivery Route/Plan - CNM FOB- Jason Jhonathan (second child together) BG Prefers Lansinoh discreet wearable Pump ([place]) Desires epidural GBS negative Specific Issues/Plan 1. Low back pain -PT in the past, referred to ortho at [facility], As they don't treat back pain, offered referral to [facility] pain clinic, referral declined. Will attend PT. 2. Congenital heart concerns: Maternal Aunt (hole in heart), FOB's brother heart surgery as child. 2a. [facility] level 2 US nml, per MFM echo not indicated 3. Marijuana use- UDS +THC; 28 wk UDS-pos THC, Family care plan done 01/20/25 4. CF previously neg, cfDNA- low risk 5. History of Anxiety and depression , no medications currently 6. Bilateral ear pain, cerumen impaction - seen at the ED 07/21 7. Scalp psoriasis - requests medication, medication prescribed by [facility] dermatology. 8. BMI 31 - Hgb A1c 5.3 9. Anesthesia consult in 3rd trimester d/t negative experience w/previous epidural ___ 10. Growth Restriction (Dx at 36+3). EFW < 3rd%ile. Recommended IOL at 37 weeks (02/08). Patient to discuss with FOB__. RTC 02/04 & 02/06 for NSTs. If pt postpones IOL, needs UA dopplers in 1 week & continue twice weekly NSTs until delivered. Assessment: History Reviewed & Current Informed Consent Informed Consent: Induction of Labor and Risk,Benefits,Alternatives Discussed Review of Systems All systems reviewed & are unremarkable except as noted in HPI and below PFSH All Active Problems Encounter for induction of labor (Acute) growth restriction antepartum (Acute) Baby confirmed at less than the 3rd percentile. Negative TORCH titers. Negative workup for preeclampsia. Uterine size date discrepancy (Acute) BMI 31.0-31.9,adult (Acute) (Acute) Lower back pain (Acute) Upper back pain (Acute) Anxiety (Chronic) Marijuana use (Acute) Medical History (Updated 02/11/25 @ 10:37 by Anne Caal) Family history of congenital heart defect Chronic sinusitis (11/29/14) sinus procedure ay [facility] at age 10 -11 Psoriasis Acne Depression Flank pain Surgical History History of tonsillectomy Family History (Updated 08/20/24 @ 13:23 by Rosette Roldan CNM) Mother Substance use disorder [place] and her sister had to move in with Paternal Grandparents at age 3 then returned to her Mother's custody at age 11 Depression Psoriasis Eczema Maternal Grandmother Dementia Diabetes Self Depression Psoriasis Sister Depression Eczema Paternal Grandmother Diabetes Paternal Grandfather Diabetes Hyperlipidemia Hypertension Advanced cirrhosis of liver Maternal Aunt Heart disease Stroke age 26. Substance use disorder Heart defect flap in the heart that did not close. Social History (Updated 08/20/24 @ 13:28 by Rosette Roldan CNM) Smoking/Tobacco Use Status: Former Tobacco Use Tobacco: How many years used: 5 Smokeless tobacco user: other Second Hand Exposure: Yes Smoking risk assessment performed?: Yes Alcohol Intake: former Drug use: Daily Substance use type: marijuana Counseling given: Yes Counseling provided: provider counseling Household members: significant other Housing: apartment Number of Children: 1 Communication Needs: None Education Level: high school Do you need help understanding health information?: Never current occupation: [employer] Pets and animals: Yes Pets and animals: dog(s) Sexually active: Yes Do you think of yourself as: straight/heterosexual Current gender identity: female What is your relationship status?: living with partner Panel score (0-1 are the most socially isolated patients): 1 What type of physical activity do you participate in: walking and occasional exercise Special neto needs: No Agree to transfusion: Yes Do you feel safe at home: Yes Do you feel safe in your relationship?: Yes Additional Social history: unable to assess privately History History 3 Para 1 Hx # Term Pregnancies 1 Multiple births 0 Hx # Pregnancies 0 Ectopic pregnancies 0 AB induced 1 Hx Number of Living Children 1 AB spontaneous 0 Past Pregnancies Del. Date GA/Weeks # Preg Succ Route Wgt Sex Labor Lgth Anesthesia Location Prov Complic 10/12/22 41 No Yes vaginal 6 lb 7.17 oz Female 8hrs 50min regional [facility] Delivery Date: 10/12/22 Last Updated by: KRISTA Lam Allergies and Home Medications Allergies Allergy/AdvReac Type Severity Reaction Status Date / Time cat dander Allergy Intermediate eye Verified 02/03/25 14:11 swelling dog dander Allergy Intermediate puffy eyes Verified 02/03/25 14:11 seasonal Allergy rhinitus Uncoded 02/03/25 14:11 Home Medications ?Medication ?Instructions ?Recorded ?Confirmed ?Type vitamins with calcium 1 tab PO DAILY #90 tabs 08/27/24 02/03/25 Rx no.72-iron 27 mg-folic acid 1 mg tablet ondansetron 8 mg disintegrating 8 mg PO Q8H PRN nausea and 01/07/25 02/03/25 Rx tablet vomiting #20 tabs Exam Physical Exam Vital signs: Temp Pulse Resp BP 97.9 F 91 H 16 111/70 02/11/25 09:00 02/11/25 09:00 02/11/25 09:00 02/11/25 09:00 Vital Signs Reviewed: Yes Constitutional Constitutional: no acute distress, average body habitus and cooperative Detailed Labor and Delivery Exam Dilation: 3 Effacement (%): 70 station: -2 Cervix position: posterior Consistency: medium GALLEGOS Score(Cervical Ripeness Score): 7 Amniotic Membrane Status: Intact Contraction Frequency(min): irregular Contraction Intensity: Mild Fetus A Heart Rate Baseline: 150 Monitor Accelerations: Present Monitor Decelerations: None Variability: Moderate (6-25 BPM) Categories: Category I Est. Weight: 5 lb 1.13 oz Est. Weight: 2300 gms HEENT Exam HEENT Exam: Normal Neck Exam Neck Exam: Normal Chest/Brest/Axilla Exam Chest Exam: Normal Breast Exam Breast Exam: Not Done Respiratory Exam Respiratory Exam: Normal Cardiovascular Exam Cardiovascular Exam: Normal Abdominal Exam Abdominal Exam: Normal (gravid, S<D) Rectal Exam Rectal Exam: Normal Exam Exam: Normal Extremities Exam Extremities Exam: Normal Back/Spine/Pelvis Exam Back Exam: Normal Pelvis Adequate: Yes Skin Exam Skin Exam: Normal Neurological Exam Neurological Exam: Normal Psychiatric Exam Psychiatric Exam: Normal Results Results Group Beta Strep: Negative Blood Type: A+ Rubella Status: Immune Varicella Immunity: Immune Risk Assessment Risk for Shoulder Dystocia Historical/Initial OB: POSITIVE FOR: Pre- BMI>30; NEGATIVE FOR: Pelvic Abnormality, Previous Shoulder Dystocia or Previous Macrosomia 36 Weeks: NEGATIVE FOR: Current Gestational DM, EFW>4500gms or Maternal Weight Gain>40lbs Delivery Plan @ 36wks: Risk for Pre-Eclampsia Yes, if one or more: NEGATIVE FOR: Hx Pre-E/Gest HTN, Chronic HTN, Multiple Gestation, Pre-gestational DM, Renal Disease, Systemic Lupus or APA Syndrome Yes, if 2 or more: POSITIVE FOR: BMI>30; NEGATIVE FOR: Nulliparity, Age>= 35 yrs, >10yr btwn pregnancies, ethinicty, Mother/Sister w/ Pre-E or Previous IUGR Risk for Post- Hemorrhage Initial: NEGATIVE FOR: Multiple Gestation, Previous PPH, Known Clotting Deficiency, Grand Multiparity or Anticoagulation 36 Weeks: NEGATIVE FOR: Anemia, hgb<10, Low platelets(thrombocytopenia), Gestational HTN or Pre-E, Polyhydraminios or EFW>4500gms At Risk?: No Counseled re: Active Management: Yes Risks Reviewed Risks Reviewed Upon Admission: Yes
--- NOTE | 2025-02-11 10:41 | W.PM.OBNL1 ---
Date of service: 02/11/25 Time of Service: 13:29 Informed Consent Informed Consent: Induction of Labor and Risk,Benefits,Alternatives Discussed Pelvic Exam Comments: SVE deferred Contractions Monitor Mode: Palpation Contraction Frequency(min): q5 Intensity: Mild/Moderate Fetus A Monitor: External (US) Heart Rate Baseline: 130 Variability: Moderate (6-25 BPM) Categories: Category I Accelerations: Present Decelerations: None Assessment and Plan Assessment and plan (1) Encounter for induction of labor: Status: Acute Assessment and plan: A: AROM done 3 hrs ago, pt reports slightly increased discomforts Category 1 tracing obtained between intermittent FHT checks, vital signs stable P: Discussed plan of care with pt, will assess for cvx change in another hour Encourage pt to ambulate and change positions If no appreciable change detected will recommend pitocin augmentation Pt verbalizes understanding and agreement with plan of care Objective Temp Pulse Resp BP 97.9 F 91 H 16 111/70 02/11/25 09:00 02/11/25 09:00 02/11/25 09:00 02/11/25 09:00 Vital Signs Reviewed: Yes Subjective Interval history since last seen: Pt sitting on bed smiling and conversing with support team
[2025-02-11 11:04] LABS: HCT 32.1 % (36.0-46.0); HGB 10.9 g/dL (11.2-15.7); MCH 29.9 pg (27.0-33.0); MCHC 34.0 % (32.0-36.0); MCV 88 fL (80-95); MPV 9.8 fL (8.0-11.0); Platelet Count 397 10^3/uL (130-400); RBC 3.64 10^6/uL (3.93-5.22); RDW 13.6 % (11.7-14.6); RDW-SD 44.3 fL; WBC 13.21 10^3/uL (4.4-10.8)
--- NOTE | 2025-02-11 14:56 | W.PM.OBNL1 ---
Date of service: 02/11/25 Time of Service: 14:56 Informed Consent Informed Consent: Augmentation of Labor and Risk,Benefits,Alternatives Discussed Pelvic Exam Dilation: 4 Effacement (%): 60 station: -2 Cervix Position: posterior Contractions Contraction Frequency(min): q5-7 Intensity: Mild Fetus A Heart Rate Baseline: 140 Variability: Moderate (6-25 BPM) Categories: Category I Assessment and Plan Assessment and plan (1) Encounter for induction of labor: Status: Acute Assessment and plan: A: Slow progression over 4-5 hrs to 4cm dilation, Pt in agreement that pitocin augmentation will be helpful Category 1 tracing P: Being pitocin augmentation, Dr. Figueredo aware of plan of care Anticipate
[2025-02-11] MEDS: Oxytocin/Normal Saline 30 UNIT/500 ML BAG 2 UNITS IV (16:44)
[2025-02-11] MEDS: Lactated Ringers 1,000 ML 125 ML IV (16:45)
--- NOTE | 2025-02-11 19:32 | W.PM.OBNL1 ---
Date of service: 02/11/25 Time of Service: 19:32 Informed Consent Informed Consent: Augmentation of Labor and Risk,Benefits,Alternatives Discussed Pelvic Exam Dilation: 6 Effacement (%): 80 station: -1 Cervix Position: mid Contractions Monitor Mode: External Contraction Frequency(min): Q2 Intensity: Moderate/Strong Fetus A Monitor: External (US) Heart Rate Baseline: 150 Variability: Moderate (6-25 BPM) Categories: Category I Accelerations: Present Decelerations: None Amniotic Membrane Status: Ruptured Assessment and Plan Assessment and plan (1) Encounter for induction of labor: Status: Acute Assessment and plan: A: Pitocin at 6u/min, pt coping well and breathing with pains Agreeable to trying nitrous, keeping epidural in mind but declines at this time Category 1 tracing P: Continue augmentation titration, comfort measures as deisred Plan for Peds to attend delivery due to IUGR Dr. Figueredo aware of status Anticipate Objective Abnormal lab results 02/11/25 Range/Units 10:45 WBC 13.21 H (4.4-10.8) 10^3/uL RBC 3.64 L (3.93-5.22) 10^6/uL Hgb 10.9 L (11.2-15.7) g/dL Hct 32.1 L (36.0-46.0) % Temp Pulse Resp BP Pulse Ox 97.7 F 75 16 130/80 99 02/11/25 15:54 02/11/25 19:29 02/11/25 15:54 02/11/25 19:29 02/11/25 15:54 Laboratory Results WBC 13.21 10^3/uL (4.4-10.8) H 02/11/25 10:45 RBC 3.64 10^6/uL (3.93-5.22) L 02/11/25 10:45 Hgb 10.9 g/dL (11.2-15.7) L 02/11/25 10:45 Hct 32.1 % (36.0-46.0) L 02/11/25 10:45 MCV 88 fL (80-95) 02/11/25 10:45 MCH 29.9 pg (27.0-33.0) 02/11/25 10:45 MCHC 34.0 % (32.0-36.0) 02/11/25 10:45 RDW 13.6 % (11.7-14.6) 02/11/25 10:45 Plt Count 397 10^3/uL (130-400) 02/11/25 10:45 MPV 9.8 fL (8.0-11.0) 02/11/25 10:45 ABO/Rh A Positive 02/11/25 10:45 Antibody Screen NEGATIVE 02/11/25 10:45 Vital Signs Reviewed: Yes Subjective Interval history since last seen: Breathing through contractions, receiving support from family, will try nitrous, not asking for epidural at this time.
[2025-02-11] MEDS: Lactated Ringers 500 ML IV ×2 (20:50→23:14)
[2025-02-11] MEDS: FentaNYL/ROPIvacaine 2 mcg/ml and 0.1% 200 ML CADD Cassette EP (21:52)
--- NOTE | 2025-02-11 22:01 | ANES.PREOP_ITS ---
General Info Date of Service Date Performed: 02/11/25 Height: 5 ft 4 in Weight: 80.031 kg Body Mass Index (BMI): 30.2 Meds Allergies and Home Medications Allergies Allergy/AdvReac Type Severity Reaction Status Date / Time cat dander Allergy Intermediate eye Verified 02/03/25 14:11 swelling dog dander Allergy Intermediate puffy eyes Verified 02/03/25 14:11 seasonal Allergy rhinitus Uncoded 02/03/25 14:11 Home Medication ?Medication ?Instructions ?Recorded vitamins with calcium 1 tab PO DAILY #90 tabs 08/27/24 no.72-iron 27 mg-folic acid 1 mg tablet ondansetron 8 mg disintegrating 8 mg PO Q8H PRN nausea and 01/07/25 tablet vomiting #20 tabs Current Visit Medications: Current Medications Generic Name Dose Route Start Last Admin Trade Name Freq PRN Reason Stop Dose Admin Fentanyl/Ropivacaine 200 ml 02/11/25 21:00 Fentanyl/Ropivacaine 2 Mcg/Ml And 0.1% 200 Ml Cadd Cassette EP DIRECTED SHANIQUA Ringer's Solution 1,000 mls @ 125 mls/hr 02/11/25 15:00 02/11/25 16:45 IV 125 mls/hr INFUSION SHANIQUA Administration Oxytocin/Sodium Chloride 30 unit in 500 mls @ 2 mls/hr 02/11/25 15:00 02/11/25 20:49 Pitocin/Normal Saline IV 0 milliunits/min INFUSION SHANIQUA 0 mls/hr Protocol Titration 2 MILLIUNITS/MIN IV Miscellaneous Supplies 1 each 02/11/25 07:00 Iv Access IV DIRECTED SHANIQUA IV Miscellaneous Supplies 1 each 02/11/25 15:00 Iv Access IV DIRECTED SHANIQUA Sodium Chloride 0 ml 02/11/25 06:50 Normal Saline Flush 10 Ml Syr IVP PRN PRN Sodium Chloride 0 ml 02/11/25 08:30 Normal Saline Flush 10 Ml Syr IVP BID SHANIQUA Sodium Chloride 0 ml 02/11/25 06:50 Normal Saline 10 Ml Vial IJ DIRECTED PRN Sodium Chloride 0 ml 02/11/25 14:55 Normal Saline Flush 10 Ml Syr IVP PRN PRN Sodium Chloride 0 ml 02/11/25 20:00 Normal Saline Flush 10 Ml Syr IVP BID SHANIQUA Sodium Chloride 0 ml 02/11/25 14:55 Normal Saline 10 Ml Vial IJ DIRECTED PRN PFSH Active Problems Active Problems: Problem Status Onset Code Encounter for induction of labor Acute Z34.90 growth restriction antepartum Acute O36.5990 Uterine size date discrepancy Acute O26.849 BMI 31.0-31.9,adult Acute Z68.31 Acute Z34.90 Lower back pain Acute M54.50 Upper back pain Acute M54.9 Anxiety Chronic F41.9 Marijuana use Acute F12.90 Medical History Medical History (Updated 02/11/25 @ 10:37 by Anne Caal) Family history of congenital heart defect Chronic sinusitis (11/29/14) sinus procedure ay [facility] at age 9 -11 Psoriasis Acne Depression Flank pain Surgical History Surgical History History of tonsillectomy Tobacco Smoking/Tobacco Use Status: Former Tobacco Use Smokeless tobacco user: other Passive smoking exposure: Yes Second hand exposure: Yes Alcohol Alcohol Intake: former Substance Use Substance use: Daily Substance use type: marijuana Counseling provided: provider counseling Prental History History 2 3 Para 1 Hx # Term Pregnancies 1 Multiple births 0 Hx # Pregnancies 0 Ectopic pregnancies 0 AB induced 1 Hx Number of Living Children 1 AB spontaneous 0 Past Pregnancies Del. Date GA/Weeks # Preg Succ Route Wgt Sex Labor Lgth Anesth esia Location [facility] 10/12/22 41 No Yes vaginal 2924.82 g Female 8hrs 50min regional [facility] Delivery Date: 10/12/22 Last Updated by: KRISTA Lam Vital Signs and Lab Results Vital Signs Most Recent Vital Signs in EMR: Most Recent Vital Signs Temp Pulse Resp BP Pulse Ox 36.7 C 0 L 16 117/71 100 02/11/25 20:54 02/11/25 21:59 02/11/25 20:54 02/11/25 21:56 02/11/25 21:45 Lab Results 02/11/25 10:45 Blood Type / Crossmatch: 2 Antibody Screen NEGATIVE Today Complete Blood Count: 2 WBC, (4.4-10.8) 13.21 10^3/uL H Today, 10:45 RBC, (3.93-5.22) 3.64 10^6/uL L Today, 10:45 Hgb, (11.2-15.7) 10.9 g/dL L Today, 10:45 Hct, (36.0-46.0) 32.1 % L Today, 10:45 Plt Count, (130-400) 397 10^3/uL Today, 10:45 Complete Metabolic Panel: 2 Sodium, (136-145) 138 mmol/L 02/06/25, 14:25 Potassium, (3.5-5.1) 3.4 mmol/L L 02/06/25, 14:25 Chloride, (98-107) 104 mmol/L 02/06/25, 14:25 Carbon Dioxide, (21.0-32.0) 23.4 mmol/L 02/06/25, 14 :25 BUN, (7-18) 6 mg/dL L 02/06/25, 14:25 Creatinine, (0.55-1.02) 0.4 mg/dL L 02/06/25, 14:25 Est GFR (CKD-EPI 2020), (mL/min/1.73m2) 145.22 02/06/25, 14:25 Calcium, (8.5-10.1) 8.9 mg/dL 02/06/25, 14:25 Albumin, (3.4-5.0) 2.7 g/dL L 02/06/25, 14:25 Glucose, (74-106) 93 mg/dL 02/06/25, 14:25 Liver Function Panel: 2 ALT, (14-59) 12 U/L L 02/06/25, 14:25 AST, (15-37) 13 U/L L 02/06/25, 14:25 Anesthesia Assessment and Plan Anesthesia History Personal History: No History of Anesthesia Complications Family History: No Family History of Anesthesia Complications Exercise Tolerance Exercise Tolerance: Metabolic Equivalents>4 Pertinent Negatives Pertinent Negatives: No Major Cardiovascular Symptoms or Complaints, No Major Pulmonary Symptoms or Complaints and No History of CVA/TIA Cardiac & Pulmonary Exam Cardiac Exam: Normal S1/S2 Heart Sounds Pulmonary Exam: Clear Bilateral Breath Sounds Implantable Cardiac Device Does patient have a Pacemaker or an ICD?: No Airway Exam Known Difficult Airway: No Mallampati Class: 2 Mouth Opening: Normal (> 3cm) Thyromental Distance: Greater than 3 cm Neck Range of Motion: Full ROM Neck Circumference: Normal Teeth Condition: Normal Dentition ASA Classification ASA Score: ASA 2 Emergency Case?: No NPO Status NPO Status: Full Stomach Status Status: Confirmed Anesthesia Plan Resuscitation Status: Full Code Anesthesia Technique: Epidural Anesthesia Airway Planned: Natural Airway Monitors Used: Standard Monitors Preoperative Comments:: 19 yo female requesting labor analgesia. Sig PMHx: depression, never smoker. Plt: 397 Plan for US guidance.
--- NOTE | 2025-02-11 22:03 | ANES.NEUR_ITS ---
Epidural/Spinal Catheter Date Performed: 02/11/25 Procedure Start: 21:36 Procedure Stop: 21:52 Requesting Provider: Anne Caal Procedure Location: Obstetrics Reason Performed: Labor Epidural Standard Monitors Applied: Blood Pressure, SpO2 and See EMR for corresponding vital signs Patient Position: Sitting Sedation Given (Indicate Dose Given): No Sedation given Patient Mental Status: Awake Sterility: Hand Hygiene, Surgical Cap, Surgical Mask, Sterile Gloves, Sterile Drape/Sheet and Chlorhexidine Procedure Location: L4-L5 Interspace Epidural Needle: Tuohy 18 Gauge Needle Length: 3.5 Inch Needle Approach: Midline Epidural Procedure: Skin Prepped, Sterile Drape Placed, 1% Lidocaine to skin and subcutaneous tissue with 25G needle, Tuohy Needle placed, MARTIN to Saline Used, Epidural Catheter Placed, Negative Heme, Negative CSF Flow and Tuohy Needle Removed Catheter Placed?: Catheter Placed Test Dose (Indicate Dose Given): 5ml 1.5% Lidocaine with 1:200K Epinephrine Given and Negative Test Dose Loss of Resistance Depth (cm): 6 Catheter depth at skin (cm): 12 Dressing: Sorbaview Dressing Placed, Mastisol Used and Dressing reinforced with Tape Epidural Provid er Bolus (Indicate Dose Given): Total bolus dose given in 3-5 ml divided doses and Total Ropivacaine 0.1% with Fentanyl 2mcg/ml Given from pump. (ml) Dose:: 5 ml, 5 ml Additives (Indicate Dose Given ): None Infusion Medication: Medication Infusion Began Medication Infusion: Ropivacaine 0.1% with Fentanyl 2mcg/ml Maintenance Infusion Rate (ml/hour): 10 PCEA Bolus Dose (ml): 5 Block Level: N/A Paresthesia: None Ultrasound: Used to aaron site Number of Attempts (See previous attempts in note section): 1 Procedure Tolerated: No Complications and Patient tolerated well Procedure Outcome: Successful Procedure Comment:: US guidance to aaron back, epidural space 6 cm. Noted very short interspaces. Performed By: Jens Chahal
--- NOTE | 2025-02-11 22:26 | PGE_ITS ---
Date of service: 02/11/25 Time of Service: 22:26 Informed Consent Informed Consent: Augmentation of Labor, Regional Anesthesia and Risk,Benefits,Alternatives Discussed Pelvic Exam Dilation: 7 Effacement (%): 80 station: -1 Contractions Monitor Mode: External Contraction Frequency(min): q2-3 Intensity: Moderate Fetus A Monitor: External (US) Heart Rate Baseline: 140 Variability: Moderate (6-25 BPM) Categories: Category I Accelerations: Present Decelerations: None Amniotic Membrane Status: Ruptured Assessment and Plan Assessment and plan (1) Encounter for induction of labor: Status: Acute Assessment and plan: A: epidural anesthesia, slow progression to 7/80% vtx -1 P: restart pitocin (turned off until epidural was completed) position pt for rotation and descent anticipate Objective Abnormal lab results 02/11/25 Range/Units 10:45 WBC 13.21 H (4.4-10.8) 10^3/uL RBC 3.64 L (3.93-5.22) 10^6/uL Hgb 10.9 L (11.2-15.7) g/dL Hct 32.1 L (36.0-46.0) % Temp Pulse Resp BP Pulse Ox 98.1 F 70 16 126/63 100 02/11/25 20:54 02/11/25 22:26 02/11/25 22:15 02/11/25 22:23 02/11/25 22:26 Laboratory Results WBC 13.21 10^3/uL (4.4-10.8) H 02/11/25 10:45 RBC 3.64 10^6/uL (3.93-5.22) L 02/11/25 10:45 Hgb 10.9 g/dL (11.2-15.7) L 02/11/25 10:45 Hct 32.1 % (36.0-46.0) L 02/11/25 10:45 MCV 88 fL (80-95) 02/11/25 10:45 MCH 29.9 pg (27.0-33.0) 02/11/25 10:45 MCHC 34.0 % (32.0-36.0) 02/11/25 10:45 RDW 13.6 % (11.7-14.6) 02/11/25 10:45 Plt Count 397 10^3/uL (130-400) 02/11/25 10:45 MPV 9.8 fL (8.0-11.0) 02/11/25 10:45 ABO/Rh A Positive 02/11/25 10:45 Antibody Screen NEGATIVE 02/11/25 10:45 Vital Signs Reviewed: Yes Subjective Interval history since last seen: epidural in place and effective though right leg is more numb than left. pt st ates she feels sleepy.
[2025-02-12] VITALS (192 sets, daily range): BP systolic 110–130; BP diastolic 56–84; PULSE 0–110; RESP 16–18; TEMP 36.5–36.9; O2SAT 97–100
--- NOTE | 2025-02-12 00:55 | W.PM.OBNL1 ---
Date of service: 02/12/25 Time of Service: 01:00 Informed Consent Informed Consent: Augmentation of Labor and Risk,Benefits,Alternatives Discussed Pelvic Exam Dilation: 7 station: -1 Comments: cvx unchanged from previous exam Contractions Monitor Mode: External Contraction Frequency(min): q2-4 Fetus A Monitor: External (US) Heart Rate Baseline: 135 Variability: Moderate (6-25 BPM) Categories: Category II Accelerations: Present Decelerations: Variable Recurrence: Periodic Amniotic Membrane Status: Ruptured Assessment and Plan Assessment and plan (1) Encounter for induction of labor: Status: Acute Assessment and plan: A: apparent intolerance of pitocin augmentation, pitocin is off rapid recovery of FHT with continued moderate variability to overall cat 1 tracing inadequate contraction pattern, pt comfortable with epidural P: Dr. Figueredo aware of tracing, Other delivery in progress on unit Plan of care to be discussed with pt when acuity on unit resolves Objective Abnormal lab results 02/11/25 Range/Units 10:45 WBC 13.21 H (4.4-10.8) 10^3/uL RBC 3.64 L (3.93-5.22) 10^6/uL Hgb 10.9 L (11.2-15.7) g/dL Hct 32.1 L (36.0-46.0) % Temp Pulse Resp BP Pulse Ox 98.2 F 83 16 119/75 100 02/11/25 22:23 02/12/25 05:05 02/12/25 01:15 02/12/25 05:05 02/12/25 05:05 Laboratory Results WBC 13.21 10^3/uL (4.4-10.8) H 02/11/25 10:45 RBC 3.64 10^6/uL (3.93-5.22) L 02/11/25 10:45 Hgb 10.9 g/dL (11.2-15.7) L 02/11/25 10:45 Hct 32.1 % (36.0-46.0) L 02/11/25 10:45 MCV 88 fL (80-95) 02/11/25 10:45 MCH 29.9 pg (27.0-33.0) 02/11/25 10:45 MCHC 34.0 % (32.0-36.0) 02/11/25 10:45 RDW 13.6 % (11.7-14.6) 02/11/25 10:45 Plt Count 397 10^3/uL (130-400) 02/11/25 10:45 MPV 9.8 fL (8.0-11.0) 02/11/25 10:45 ABO/Rh A Positive 02/11/25 10:45 Antibody Screen NEGATIVE 02/11/25 10:45 Vital Signs Reviewed: Yes Objective Narrative Objective Narrative: pitocin restarted at 2 u/min but discontinued due to variable decels. Subjective Interval history since last seen: epidural remains effective, pt aware of increasing possibility of c/s and is concerned.
--- NOTE | 2025-02-12 02:53 | OBCE_ITS ---
Date of service: 02/12/25 Time of Service: 02:53 Assessment and Plan Assessment and plan (1) 37 weeks gestation of : Status: Acute Assessment and plan: 19 yo ( x1) at 37 weeks undergoing IOL for growth restriction. A limited bedside US appreciated a very full bladder seemingly deflecting the head out of the pelvis. Upon placement of a otero catheter which evacuated 300+ cc's of urine, US confirmed head down positioning. We had an extensive discussion regarding concerns surrounding her FHT monitoring. We discussed the potential for . We discussed that risks of include, but are not limited to, bleeding, infection, VTE, and damage to surrounding tissues. We discussed risks of further pursuing vaginal delivery include, but are not limited to, severe decompensation. Patient verbalized understanding. She would like to continue to pursue vaginal delivery for now as she does plan for more children after this and her cervix is notably favorable (7-8 / 80 / -2). I will remain in house and we plan to reinitiate Pitocin. (2) growth restriction antepartum: Status: Acute History of Present Illness Narrative: 19 yo ( x1) at 37 5/7 as dated by 13 wk US (DORI 02/28/2025) is consulted to our services for suspicious testing remote from delivery. Patient presented yesterday morning for an induction of labor for growth restriction (EFW less than the 3rd %tile, DUSTIN 12.2, dopplers WNL as of 02/03/2025). She underwent AROM at 10:15 am to clear fluid. She was monitored for 5 hours, but did not enter an active labor pattern; therefore, she received a epidural upon patient request and was initiated on Pitocin. Overtime, the patient began to concerning variable decelerations that ultimately resulted in turning off the patient's Pitocin, which resulted in full resuscitation of the strip. Review of Systems All systems reviewed & are unremarkable except as noted in HPI and below PFSH All Active Problems 37 weeks gestation of (Acute) Encounter for induction of labor (Acute) growth restriction antepartum (Acute) Baby confirmed at less than the 3rd percentile. Negative TORCH titers. Negative workup for preeclampsia. Uterine size date discrepancy (Acute) BMI 31.0-31.9,adult (Acute) (Acute) Lower back pain (Acute) Upper back pain (Acute) Anxiety (Chronic) Marijuana use (Acute) Medical History (Updated 02/12/25 @ 03:16 by Nuha Figueredo DO) Family history of congenital heart defect Chronic sinusitis (11/29/14) sinus procedure ay [facility] at age 10 -11 Psoriasis Acne Depression Flank pain Surgical History History of tonsillectomy Family History (Updated 08/20/24 @ 13:23 by Rosette Roldan CNM) Mother Substance use disorder [place] and her sister had to move in with Paternal Grandparents at age 3 then returned to her Mother's custody at age 11 Depression Psoriasis Eczema Maternal Grandmother Dementia Diabetes Self Depression Psoriasis Sister Depression Eczema Paternal Grandmother Diabetes Paternal Grandfather Diabetes Hyperlipidemia Hypertension Advanced cirrhosis of liver Maternal Aunt Heart disease Stroke age 26. Substance use disorder Heart defect flap in the heart that did not close. Social History (Updated 08/20/24 @ 13:28 by Rosette Roldan CNM) Smoking/Tobacco Use Status: Former Tobacco Use Tobacco: How many years used: 5 Smokeless tobacco user: other Second Hand Exposure: Yes Smoking risk assessment performed?: Yes Alcohol Intake: former Drug use: Daily Substance use type: marijuana Counseling given: Yes Counseling provided: provider counseling Household members: significant other Housing: apartment Number of Children: 1 Communication Needs: None Education Level: high school Do you need help understanding health information?: Never current occupation: [employer] Pets and animals: Yes Pets and animals: dog(s) Sexually active: Yes Do you think of yourself as: straight/heterosexual Current gender identity: female What is your relationship status?: living with partner Panel score (0-1 are the most socially isolated patients): 1 What type of physical activity do you participate in: walking and occasional exercise Special neto needs: No Agree to transfusion: Yes Do you feel safe at home: Yes Do you feel safe in your relationship?: Yes Additional Social history: unable to assess privately History History 2 3 Para 1 Hx # Term Pregnancies 1 Multiple births 0 Hx # Pregnancies 0 Ectopic pregnancies 0 AB induced 1 Hx Number of Living Children 1 AB spontaneous 0 Past Pregnancies Del. Date GA/Weeks # Preg Succ Route Wgt Sex Labor Lgth Anesth esia Location Prov Complic 10/12/22 41 No Yes vaginal 6 lb 7.17 oz Female 8hrs 50min regional [facility] Delivery Date: 10/12/22 Last Updated by: KRISTA Lam Exam Narrative Exam Narrative: general: well-nourished female in no immediate distress pulm: no overt respiratory distress abd: soft, gravid, non-tender ext: no swelling SVE: Initial SVE was concerning for fullness noted along the anterior vaginal wall and no palpable cervix. After evacuation of the bladder, SVE 7-8 / 80 / -2; cephalic FHT: Cat 1 at the time of consultation [place]: rare Results Last Vital Signs Temp 98.2 F 02/11/25 22:23 Pulse 73 02/12/25 02:51 Resp 16 02/12/25 01:15 BP 110/56 L 02/12/25 02:04 Pulse Ox 100 02/12/25 02:51 Labs 02/11/25 10:45 Labs: Laboratory Results - last 24 hr 02/11/25 10:45 WBC 13.21 H RBC 3.64 L Hgb 10.9 L Hct 32.1 L MCV 88 MCH 29.9 MCHC 34.0 RDW 13.6 Plt Count 397 MPV 9.8 ABO/Rh A Positive Antibody Screen NEGATIVE Rh+ / Rub I / VZV I / GBS neg
--- NOTE | 2025-02-12 03:51 | W.PM.PROGNOT ---
Date of Service Date of service: 02/12/25 Time of Service: 03:51 Exam Narrative Exam Narrative: general: well nourished female in no immediate distress pulm: no overt respiratory distress abd: gravid, non-tender psych: appropriate, cooperative SVE: 7 / 80 / -1; cephalic. Notably better applied than prior FHT: Overall reassuring with intermittent variables [place]: Rare Objective Last Vital Signs Temp 98.2 F 02/11/25 22:23 Pulse 0 L 02/12/25 03:47 Resp 16 02/12/25 01:15 BP 120/68 02/12/25 03:05 Pulse Ox 100 02/12/25 03:11 Laboratory Results - last 24 hr 02/11/25 10:45 WBC 13.21 H RBC 3.64 L Hgb 10.9 L Hct 32.1 L MCV 88 MCH 29.9 MCHC 34.0 RDW 13.6 Plt Count 397 MPV 9.8 ABO/Rh A Positive Antibody Screen NEGATIVE Objective Narrative Objective Narrative: Patient has continued to have intermittent, non--recurrent variable decelerations noted on external monitoring. Discussed FSE placement for accurate tracing and IUPC placement for quantitative assessment of contractions and possibility of amnioinfusion. We had an extensive discussion regarding risks and benefits of these interventions including, but not limited to, infection. Questions were answred to the patient's satisfaction and she consented to placement. First attempted to place IUPC, which was guided without resistance. However, following initial placement, bloody return was noted and there was resistance with attempt to flush. FHT's were found to be appropriate (130's) and the inital IUPC was removed and discarded. FSE then placed along scalp without issue. Second attempt at IUPC placement again met no resistance and this time was without bloody return. There was no evidence of bleeding on patient's exam nor concerning changes in FHTs. Amnioinfusion order for bolus of 250 cc's over first hour followed by 150 cc's over subsequent hours. Will reinitiate Pitocin once bolus is in. Time Spent with Patient Time Spent with Patient: 25-34 minutes Time was spent: preparing to see the patient(eg.review tests), obtaining and/or reviewing separately otained hiistory, ordering medications,tests, procedures, referring, communicating with other health child adolescent care, indepentently interpreting results and counseling the patient
[2025-02-12] MEDS: Oxytocin/Normal Saline 30 UNIT/500 ML BAG 95 UNITS IV (05:30)
--- NOTE | 2025-02-12 05:32 | PLAC_PTH ---
PATIENT: Radha Pires LOC: OBS U#:[id number] AGE/SX: 19/F ROOM: OBS.300 RE02/11/[address]: Anne Caal CNM : 2005 BED: A DIS: 02/14/2025 SPEC #: [id number] RECD: 02/12/25 12:20 STATUS: RAHUL REQ #: [id number] HERLINDA: 02/12/25 05:[address]: Anne Caal DEPT: Surgical Specimen RECD BY: Esther Elmore ENTERED: 02/12/25 12:21 SP TYPE: PLAC OTHR DR: Melva Santos Tissues: 1 - PLACENTA (3RD TRIMESTER) Procedures: GROSS AND MICRO LEVEL 5 Comments: [id number]
--- NOTE | 2025-02-12 05:54 | OBVDS_ITS ---
Date of service: 02/12/25 Time of Service: 05:54 OB Labor/ Delivery Information Baby A Delivery Delivery Method: Spontaneaous Presentation: Cephalic Vertex Position: Right Occipital Anterior Cord Description-Baby A: 3 Vessels Amniotic Fluid: Clear Estimated Blood Loss: 100 Delivery Outcome: Liveborn Complications: Small for gestational age Infant Transferred: Remains with Mother Providers Doctor: Nuha Figueredo Nurse: Cinthya Shearer Nurse: Cynthia Rios Labor/Delivery Information Number of Babies in Womb: 1 Steroids Given: None Reason Steroids Not Administered: N/A Group Beta Strep: Negative Antibiotics Administered: No Rubella Status: Immune Blood Type: A+ Varicella Immunity: Immune Shoulder Dystocia: No Stages of Labor Complete Dilatation Date: 02/12/25 Complete Dilatation Time: 05:10 ROM Baby A: 02/11/25 ROM Baby A: 10:15 ROM Total Time- Baby A: [id number] Delivery Date-Baby A: 02/12/25 Infant Delivery Time-Baby A: 05:18 Labor Stage 2 Duration: 8 minutes Placenta Delivery Date-Baby A: 02/12/25 Placenta Delivery Time-Baby A: 05:32 Labor-Stage 3 Duration: 14 minutes Placenta Status: Delivered Baby A Gestational Status: Early Term (37-38.6 wks) Gestational Age in Weeks/Days: 37 Weeks and 5 Days Length-Baby A: 19.5 in Score-1 Minute Interval(Baby A) Heart Rate-1 minute: 100 BPM or Greater Respiratory Effort- 1 minute: Spontaneous/Strong Cry Muscle Tone-1 minute: Active Movement Reflex Response-1 minute: Prompt Response Color-1 minute: Bluish Hands or Feet Total Score-1 minute: 9 Score-5 Minute Interval(Baby A) Heart Rate- 5 minute: 100 BPM or Greater Respiratory Effort-5 minute: Spontaneous/Strong Cry Muscle Tone-5 minute: Active Movement Reflex Response-5 minute: Prompt Response Color-5 minute: Bluish Hands or Feet Total Score- 5 minute: 9 Note: 19 yo G3 now P2012 underwent a 37 week spontaneous vaginal delivery over an intact perineum to a 2240 g baby girl (Rashmi) under epidural anesthesia. Patient presented on the morning of 02/11/2025 for induction of labor for growth restriction. She was induced with amniotomy and ultimately needed augmentation with Pitocin and received an epidural. Her FHT monitoring warranted amnioinfusion; however, upon initiation of the amnioinfusion, FHT's became notably concerning. I was called to the room for assessment, and I found the mother highly uncomfortable. SVE was complete / +2. We set up for a delivery which the mother underwent without issue. She delivered the head in LASHAUN and no nuchal cord was present. She then swiftly delivered the remainder of the body without issue. The baby was noted to be immediately vigorous, and placed upon the maternal abdomen. Delayed cord clamping was allowed after which, the cord was double clamped and cut by the father of the baby under the guidance of the physician. A segment of cord was collected and set aside, and cord blood was collected. Prophylactic Pitocin was then immediately initiated. The placenta delivered within 15 minutes of delivery of the baby with minimal issue and was appreciated to be fully intact. Of note, a portion of the placenta appeared dusk y and independent of the rest of the placenta; given this in the setting of FGR, the placenta was sent for pathology. No lacerations were appreciated and good hemostasis was appreciated. The mother and baby tolerated the procedure well.
[2025-02-12] MEDS: Ibuprofen 600 MG TAB PO ×2 (15:11→21:29)
[2025-02-12] MEDS: Acetaminophen 325 MG TAB 650 MG PO (21:30)
[2025-02-13] MEDS: Acetaminophen 325 MG TAB 650 MG PO ×2 (05:05→19:30)
[2025-02-13] MEDS: Ibuprofen 600 MG TAB PO ×2 (05:05→19:30)
[2025-02-13 08:00] VITALS: BP 109/70; PULSE 80; RESP 16; TEMP 36.5; O2SAT 100
--- NOTE | 2025-02-13 08:01 | W.ANESPOSTOP ---
Postoperative Evaluation Date, Time and Location Date Performed: 02/13/25 Time Performed: 08:01 Patient Location: Other (Discharged home without apparent complications. ) Vital Signs Most Recent Imported Vital Signs: Most Recent Vital Signs Temp Pulse Resp BP Pulse Ox 36.5 C 89 16 110/73 97 02/12/25 19:30 02/12/25 19:30 02/12/25 19:30 02/12/25 19:30 02/12/25 19:30 Pain Score Most Recent Pain Score: Most Recent Pain Score Pain Level 10 02/12/25 05:00 Assessment Mental Status: Awake (Alert & Oriented to Patient Baseline) Airway and Respiratory Function: Patent airway with normal (patient baseline) respiratory exam Cardiovascular Function: Hemodynamically Stable Hydration Status: Adequately Hydrated Nausea & Vomiting: No Nausea or Vomiting Pain: Pain is tolerable per patient Peripheral Nerve Block: Patient did not receive a nerve block
[2025-02-13 12:00] VITALS: BP 112/72; PULSE 74; RESP 16; TEMP 36.4; O2SAT 99
--- NOTE | 2025-02-13 12:48 | W.PM.OBPNV1 ---
Date of service: 02/13/25 Time of Service: 12:49 Assessment and Plan Assessment and plan (1) Vaginal delivery: Status: Acute Assessment and plan: 19 yo G3 now P2012 s/p 27 wk - Rh+ / Rub I / VZV I / GBS neg - complicated by FGR - Intrapartum course uncomplicated - course uncomplicated - Meeting all milestones appropriately - Lochia appropriate - - Discussed depression and encouraged low threshold for seeking immediate medical attention if concerns arise; no current concerns - Contraceptive planning: Interested in IUD but not Mirena - Counseled on pelvic rest for a full 6 weeks - Discharge planning: today - - - - - - - - - - - - - - 02/13/2021 (Terell): Reports feeling well. No complaints. without issue. Lochia appropriate. Ambulating, urinating, and eating without issue. - - - - - - - - - - - - - - Exam Physical Exam Vital signs: Temp Pulse Resp BP Pulse Ox 97.5 F L 72 16 106/65 99 02/14/25 08:00 02/14/25 08:00 02/14/25 08:00 02/14/25 08:00 02/14/25 08:00 Narrative: general: Well nourished female in no immediate distress pulm: No overt respiratory distress abd: soft, non-tender, non distended ext: No edema Psych: Appropriate, cooperative Results Hemoglobin/Hematocrit: Hgb 10.9 g/dL (11.2-15.7) L 02/11/25 10:45 Hct 32.1 % (36.0-46.0) L 02/11/25 10:45 Abnormal Lab Findings: Abnormal Labs 02/11/25 10:45 WBC 13.21 H RBC 3.64 L Hgb 10.9 L Hct 32.1 L
[2025-02-13 16:00] VITALS: BP 101/64; PULSE 84; RESP 16; TEMP 36.9; O2SAT 99
[2025-02-13 19:24] VITALS: BP 140/81; PULSE 79; RESP 16; TEMP 36.6; O2SAT 99
[2025-02-13 19:58] VITALS: BP 116/70
[2025-02-14 08:00] VITALS: BP 106/65; PULSE 72; RESP 16; TEMP 36.4; O2SAT 99
[2025-02-14] MEDS: Ibuprofen 600 MG TAB PO (08:35)
[2025-02-14] MEDS: Acetaminophen 325 MG TAB 650 MG PO (08:36)
--- NOTE | 2025-02-14 12:09 | W.PM.OBDISCH ---
Date of service: 02/14/25 Time of Service: 12:09 DS: Diagnosis Discharge Diagnosis (1) Encounter for induction of labor: Status: Acute Discharge Plan Disposition Specific Acute Inpt Facility: [facility] Condition: Good Condition: Good Discharge Details Reason For Visit: IUGR, Induction of Labor 37 wks Admit Date/Time: 02/11/25 06:50 Admit Provider: Anne Caal Attending Provider: Anne Caal Primary Care Provider: Melva Santos [facility] Course Hospital Course: 19 yo G3 now P2012 presented on 02/11/2025 at 37 weeks for IOL for growth restriction, less than the third percentile. GBS status was negative; therefore, she did not require prophylaxis. She was induced with AROM to clear fluid. After 5 hours, she did not make appreciable change and was augmented with Pitocin. She also received an epidural. She ultimately underwent an uncomplicated vaginal delivery to a 2240 g viable baby girl (Rashmi). She did not have any repairs. Her placenta was sent for pathology. Her recovery was largely unremarkable. This morning, she is found doing well. She is meeting all milestones and is without complaints. Lochia appropriate. She expresses interest in IUD for contraception (though she does not want the Mirena). She is . She was counseled on pelvic rest and the importance of close follow up. Home Meds and New Rx's Prescriptions: New Dermoplast 20 % aerosol 1 applic topical TID-QID 5 Days Qty: 78 1RF ibuprofen 600 mg tablet 600 mg PO Q6H 10 Days Qty: 40 0RF No Action PNV,calcium 65-[id number]-[id number] acid 27 mg iron- 1 mg tablet 1 tab PO DAILY Qty: 90 3RF Rx Instructions: give with food (meal/snack) ondansetron 8 mg tablet,disintegrating 8 mg PO Q8H PRN (Reason: nausea and vomiting) Qty: 20 5RF Discharge Instructions Instructions: Vaginal Delivery (DC) Additional Instructions: ? Eat a well-rounded diet ? Ambulate regularly and engage in light activity while avoiding repeated heavy lifting (over 10 pounds) ? Take your medications as prescribed ? Please be sure to attend your follow-up visits ? If you have an incision, be sure to keep it clean and dry using simple soap and water; avoid scrubbing to avoid damage to suture ? If you have been prescribed narcotics such as tramadol or oxycodone or [place], please note these medications have an addictive potential and should be used sparingly.? Please discard of any leftover medication either with your local pharmacy or by flushing the medication.? Do not share these medications with other individuals, and have a low threshold for seeking immediate medical evaluation if you experience any sleepiness, headaches, or any other concerns while using these medications. ? Please do not insert anything vaginally, including but not limited to, tampons, douching, or sexual intercourse, for a full 8 weeks and/or until you are medically cleared. ? If you have any concerns including fevers/chills, lightheadedness, visual changes, persistent headaches unresponsive to Tylenol, persistent nausea/vomiting, persistent abdominal pain, bruising and or leakage from your incision sites, excessive vaginal bleeding, or any other concerns, please have a low threshold for seeking immediate medical evaluation and/or reaching out to our clinic at [phone]. ? If you find yourself having crying spells you cannot explain, loss of appetite, persistent inability to sleep, lack of bonding with your baby, and/or general and persistent sadness, please feel free to reach out to our clinic immediately at [phone]. Stand Alone Forms: BC Instructions, BC Post Vaginal Deliver Activity:: pelvic rest x6 weeks Activity:: pelvic rest x6 weeks Equipment/Supplies:: No Equipment Needed Diet:: Normal Diet OB:DS Summary Summary Vaginal Delivery Method: Spontaneaous Episiotomy Description: None Laceration Description: None Laceration Extension: N/A Contraception Discussed Contraception Discussed: Yes, weight: 4 lb 15.014 oz Status at Discharge Functional status at discharge: independent ambulation Overall status at discharge: patient is progressing back to baseline Mental Status: mental status grossly normal Speech and Movement: speech and movement normal Mood: congruent mood Affect: normal affect Quality:SDOH Health Related Social Needs: Health related social needs risk of homeless daily activities Health related social needs details Needs addressed Health related social needs details: Needs addressed Exam Physical Exam Vital signs: Temp Pulse Resp BP Pulse Ox 97.5 F L 72 16 106/65 99 02/14/25 08:00 02/14/25 08:00 02/14/25 08:00 02/14/25 08:00 02/14/25 08:00 [facility] All Active Problems 37 weeks gestation of (Acute) Encounter for induction of labor (Acute) growth restriction antepartum (Acute) Baby confirmed at less than the 3rd percentile. Negative TORCH titers. Negative workup for preeclampsia. Uterine size date discrepancy (Acute) BMI 31.0-31.9,adult (Acute) (Acute) Lower back pain (Acute) Upper back pain (Acute) Anxiety (Chronic) Marijuana use (Acute) Medical History Family history of congenital heart defect Chronic sinusitis (11/29/14) sinus procedure ay [facility] at age 10 -11 Psoriasis Acne Depression Flank pain Surgical History History of tonsillectomy Family History Mother Substance use disorder [place] and her sister had to move in with Paternal Grandparents at age 3 then returned to her Mother's custody at age 12 Depression Psoriasis Eczema Maternal Grandmother Dementia Diabetes Self Depression Psoriasis Sister Depression Eczema Paternal Grandmother Diabetes Paternal Grandfather Diabetes Hyperlipidemia Hypertension Advanced cirrhosis of liver Maternal Aunt Heart disease Stroke age 26. Substance use disorder Heart defect flap in the heart that did not close. Social History Smoking/Tobacco Use Status: Former Tobacco Use Tobacco: How many years used: 5 Smokeless tobacco user: other Second Hand Exposure: Yes Smoking risk assessment performed?: Yes Alcohol Intake: former Drug use: Daily Substance use type: marijuana Counseling given: Yes Counseling provided: provider counseling Household members: significant other Housing: apartment Number of Children: 1 Communication Needs: None Education Level: high school Do you need help understanding health information?: Never current occupation: [employer] Pets and animals: Yes Pets and animals: dog(s) Sexually active: Yes Do you think of yourself as: straight/heterosexual Current gender identity: female What is your relationship status?: living with partner Panel score (0-1 are the most socially isolated patients): 1 What type of physical activity do you participate in: walking and occasional exercise Special neto needs: No Agree to transfusion: Yes Do you feel safe at home: Yes Do you feel safe in your relationship?: Yes Additional Social history: unable to assess privately History History 3 Para 1 Hx # Term Pregnancies 1 Multiple births 0 Hx # Pregnancies 0 Ectopic pregnancies 0 AB induced 1 Hx Number of Living Children 1 AB spontaneous 0 Past Pregnancies Del. Date GA/Weeks # Preg Succ Route Wgt Sex Labor Lgth Anesthesia Location Prov Complic 10/12/22 41 No Yes vaginal 6 lb 7.17 oz Female 8hrs 50min regional [facility] Delivery Date: 10/12/22 Last Updated by: KRISTA Lam DS: Data Vitals/I&O Vitals and I&O: Vital Signs Temperature 97.5 F L 02/14/25 08:00 Temperature Source Oral 02/14/25 08:00 Pulse 72 02/14/25 08:00 Pulse Rhythm Regular 02/14/25 08:00 Respiratory Rate 16 02/14/25 08:00 Blood Pressure 106/65 02/14/25 08:00 Blood Pressure Mean 78 02/14/25 08:00 Pulse Oximetry 99 02/14/25 08:00 Oxygen Delivery Method Room Air 02/11/25 09:00 Oxygen Flow Rate 0 02/11/25 09:00 Pain Level 1 02/14/25 08:36 Comment BP recheck, MD [place], chatted with pt to check in. 02/13/25 19:58 Intake & Output 02/13/25 02/14/25 02/14/25 23:59 11:59 23:59 Other: Comment pt voiding independently without difficulty pt voiding independently without difficulty
== END 2025-02-14 11:50 | DRG 806 ==
PROVIDERS: Admitting Provider Advanced Practice Midwife; PCP Family Medicine; Visit Provider Advanced Practice Midwife
DX: O36.5930 Maternal care for other known or suspected poor fetal growth, third trimester, not applicable or unspecified (principal); O99.324 Drug use complicating childbirth; Z37.0 Single live birth; Z3A.37 37 weeks gestation of pregnancy; O43.893 Other placental disorders, third trimester; O99.344 Other mental disorders complicating childbirth; F41.8 Other specified anxiety disorders; F12.90 Cannabis use, unspecified, uncomplicated; O99.72 Diseases of the skin and subcutaneous tissue complicating childbirth; L40.8 Other psoriasis; Z82.79 Family history of other congenital malformations, deformations and chromosomal abnormalities
CPT/HCPCS: 36415; 85027; 86850; 86900; 86901; 88307

== ENCOUNTER 2025-03-25 11:40 | Outpatient (REF) | payer MEDICAID, SELFPAY ==
[2025-03-26 13:27] LABS: Chlamydia Result Negative (Negative); GC Result Negative (Negative)
== END 2025-03-25 11:41 | disposition home or self-care (01) ==
LOC: LBN 11:40
PROVIDERS: PCP Family Medicine; Visit Provider Obstetrics & Gynecology
DX: N89.8 Other specified noninflammatory disorders of vagina (principal)
CPT/HCPCS: 87491; 87591

== ENCOUNTER 2025-04-12 02:03 | Outpatient (CLI) | payer MEDICAID, SELFPAY ==
[2025-04-12 10:49] LABS: Abs Immature Grans 0.02 10^3/uL (0.0-0.06); HCT 38.0 % (36.0-46.0); HGB 12.1 g/dL (11.2-15.7); Immature Grans % 0.2 %; MCH 27.6 pg (27.0-33.0); MCHC 31.8 % (32.0-36.0); MCV 87 fL (80-95); MPV 9.2 fL (8.0-11.0); Platelet Count 346 10^3/uL (130-400); RBC 4.38 10^6/uL (3.93-5.22); RDW 13.7 % (11.7-14.6); RDW-SD 43.8 fL; WBC 9.11 10^3/uL (4.4-10.8)
== END 2025-04-12 02:04 | disposition home or self-care (01) ==
LOC: LBO 02:03
PROVIDERS: PCP Family Medicine; Visit Provider Obstetrics & Gynecology
DX: Z01.818 Encounter for other preprocedural examination (principal)
CPT/HCPCS: 36415; 86850; 86900; 86901; 85025

== ENCOUNTER 2025-04-14 06:28 | Day surgery (SDC) | payer MEDICAID, SELFPAY ==
[2025-04-14 06:40] VITALS: BP 112/66; PULSE 84; RESP 20; TEMP 37; O2SAT 97
[2025-04-14] MEDS: Lactated Ringers 1,000 ML 100 ML IV (06:58)
--- NOTE | 2025-04-14 07:16 | ANES.PREOP_ITS ---
General Info Date of Service Date Performed: 04/14/25 Height: 5 ft 4 in Weight: 77.1 kg Body Mass Index (BMI): 29.1 Surgical Procedure: Operation Date: 04/14/25 07:40 Proposed Procedure Side Surgeon p Insertion of IUD-Mirena, Ultrasound Guided Nuha Figueredo DO Meds Allergies and Home Medications Allergies Allergy/AdvReac Type Severity Reaction Status Date / Time cat dander Allergy Intermediate eye Verified 04/14/25 06:35 swelling dog dander Allergy Intermediate puffy eyes Verified 04/14/25 06:35 seasonal Allergy rhinitus Uncoded 04/14/25 06:35 Home Medication Medication Instructions Recorded Unknown [No Known Home Meds] 03/25/25 Current Visit Medications: Current Medications Generic Name Dose Route Start Last Admin Trade Name Freq PRN Reason Stop Dose Admin Ringer's Solution 1,000 mls @ 100 mls/hr 04/14/25 06:00 04/14/25 06:58 IV 04/14/25 23:59 100 mls/hr INFUSION SHANIQUA Administration IV Miscellaneous Supplies 1 each 04/14/25 06:00 Iv Access IV 04/14/25 23:59 DIRECTED SHANIQUA Sodium Chloride 0 ml 04/14/25 06:00 Normal Saline Flush 10 Ml Syr IV 04/14/25 23:59 PRN PRN Sodium Chloride 0 ml 04/14/25 06:00 Normal Saline 10 Ml Vial IJ 04/14/25 23:59 DIRECTED PRN Sterile Water 0 ml 04/14/25 06:00 Water,Injection,Sterile 10 Ml Vial IJ 04/14/25 23:59 DIRECTED PRN PFSH Active Problems Active Problems: Problem Status Onset Code Contraception management Acute Z30.9 Vaginal delivery Acute O80 Uterine size date discrepancy Acute O26.849 BMI 31.0-31.9,adult Acute Z68.31 Acute Z34.90 Lower back pain Acute M54.50 Upper back pain Acute M54.9 Anxiety Chronic F41.9 Marijuana use Acute F12.90 Medical History Medical History growth restriction antepartum Baby confirmed at less than the 3rd percentile. Negative TORCH titers. Negative workup for preeclampsia. Family history of congenital heart defect Chronic sinusitis (11/29/14) sinus procedure ay [facility] at age 10 -11 Psoriasis Acne Depression Flank pain Surgical History Surgical History History of tonsillectomy Tobacco Smoking/Tobacco Use Status: Never Smokeless tobacco user: other Passive smoking exposure: No Second hand exposure: Yes Alcohol Alcohol Intake: former Substance Use Substance use: Daily Substance use type: marijuana Counseling provided: provider counseling Prental History History 3 Para 1 Hx # Term Pregnancies 1 Multiple births 0 Hx # Pregnancies 1 Ectopic pregnancies 0 AB induced 1 Hx Number of Living Children 1 AB spontaneous 0 Past Pregnancies Del. Date GA/Weeks # Preg Succ Route Wgt Sex Labor Lgth Anesth esia Location Prov Complic 10/12/22 41 No Yes vaginal 2924.82 g Female 8hrs 50min regional [facility] 02/12/25 37 No Yes vaginal Female Dr Clara multani Delivery Date: 10/12/22 Last Updated by: KRISTA Lam Vital Signs and Lab Results Vital Signs Most Recent Vital Signs in EMR: Most Recent Vital Signs Temp Pulse Resp BP Pulse Ox 37 C 84 20 112/66 97 04/14/25 06:40 04/14/25 06:40 04/14/25 06:40 04/14/25 06:40 04/14/25 06:40 Point of Care Results Point of Care Results: POC- Test(urine) Negative 04/14/25 06:49 Lab Results Blood Type / Crossmatch: Antibody Screen NEGATIVE 04/12/25 Complete Blood Count: WBC, (4.4-10.8) 9.11 10^3/uL 04/12/25, 10:35 RBC, (3.93-5.22) 4.38 10^6/uL 04/12/25, 10:35 Hgb, (11.2-15.7) 12.1 g/dL 04/12/25, 10:35 Hct, (36.0-46.0) 38.0 % 04/12/25, 10:35 Plt Count, (130-400) 346 10^3/uL 04/12/25, 10:35 Infectious Disease: N.gonorrhoeae DNA Probe, (Negative) Negative 02/26 , 11:35 Panel: Urine HCG, Qual Negative 03/25/25, 11:51 Anesthesia Assessment and Plan Anesthesia History Personal History: No History of Anesthesia Complications Family History: No Family History of Anesthesia Complications Exercise Tolerance Exercise Tolerance: Metabolic Equivalents>4 Pertinent Negatives Pertinent Negatives: No Major Cardiovascular Symptoms or Complaints, No Major Pulmonary Symptoms or Complaints and No History of CVA/TIA Cardiac & Pulmonary Exam Cardiac Exam: Normal S1/S2 Heart Sounds Pulmonary Exam: Clear Bilateral Breath Sounds Implantable Cardiac Device Does patient have a Pacemaker or an ICD?: No Airway Exam Known Difficult Airway: No Mallampati Class: 2 Mouth Opening: Normal (> 3cm) Thyromental Distance: Greater than 3 cm Neck Range of Motion: Full ROM Neck Circumference: Normal Teeth Condition: Normal Dentition ASA Classification ASA Score: ASA 2 Emergency Case?: No NPO Status NPO Status: Full Stomach Status Status: Negative HCG Anesthesia Plan Resuscitation Status: Full Code Anesthesia Technique: General Anesthesia Airway Planned: Natural Airway Monitors Used: Standard Monitors Preoperative Comments:: Sig PMHx: depression, never smoker.
--- NOTE | 2025-04-14 07:28 | HPE_ITS ---
Date of service: 04/14/25 Time of Service: 07:28 Assessment and Plan Assessment and plan (1) Contraception management: Status: Acute Assessment and plan: 19 yo ( x2) s/p 37 wk on 02/12/2025 - Rh+ / Rub I / VZV I / GBS positive - complicated by FGR - Intrapartum course uncomplicated - course uncomplicated - - Pap smear not yet indicated - depression screening - Encouraged PNV - Contraception: Planning for Kyleena at next visit - - - - - - - - - - - - - 02/26/2025 (Terell): Patient presents for today for routine screen ing. She is found to be in very good spirits and denies any complaints. She has a baby with her and the baby is doing very well. We had a thorough discussion regarding contraceptive options and she is interested in the Kyleena IUD; she reports a history of discomfort with the Mirena but would like to stay with the highest dose progesterone possible with the next level down. She has not been sexually active since delivery. 03/25/2025 (Cameron): Patient seen the office today for contraceptive management. She had been counseled be between a long and short-term acting reversible contraceptive therapy. She had decided on a Kyleena system in light of the fact that her previous Mirena was crampy, uncomfortable, and she had regular menstrual cycles. The risk, benefits, and alternatives were discussed with the patient today and full informed consent was obtained. She had a urine test that was negative. She has not been sexually active. GC chlamydia screening sent to the lab. Doing well . No issues or concerns. Breast and bottlefeeding. Desires contraceptive management. Attempts at placement of Kyleena today without success. Patient will be scheduled for an IUD placement, Mirena, under sedation, with ultrasound guidance by Dr. Figueredo. 04/14/2025 (Terell): Patient was seen at bedside. We again reviewed the risks and benefits of the procedure. We discussed that as with anytime we are breaking skin there is always a risk of bleeding, infection, and damage to surrounding tissues; most pertinently in this case we are concerned about the potential for uterine perforation where instruments go through the back of the uterus. We discussed that this may necessitate more invasive procedures if it were to happen. We discussed that there are risks associated with anesthesia as well as unforeseen complications. All questions were answered to the patient's satisfaction and she verbalized understanding. She was consented for Mirena IUD placement under sedation. - - - - - - - - - - - - - Review of Systems All systems reviewed & are unremarkable except as noted in HPI and below PFSH All Active Problems Contraception management (Acute) Vaginal delivery (Acute) Uterine size date discrepancy (Acute) BMI 31.0-31.9,adult (Acute) (Acute) Lower back pain (Acute) Upper back pain (Acute) Anxiety (Chronic) Marijuana use (Acute) Medical History growth restriction antepartum Baby confirmed at less than the 3rd percentile. Negative TORCH titers. Negative workup for preeclampsia. Family history of congenital heart defect Chronic sinusitis (11/29/14) sinus procedure ay [facility] at age 10 -11 Psoriasis Acne Depression Flank pain Surgical History History of tonsillectomy Family History Mother Substance use disorder [place] and her sister had to move in with Paternal Grandparents at age 3 then returned to her Mother's custody at age 11 Depression Psoriasis Eczema Maternal Grandmother Dementia Diabetes Self Depression Psoriasis Sister Depression Eczema Paternal Grandmother Diabetes Paternal Grandfather Diabetes Hyperlipidemia Hypertension Advanced cirrhosis of liver Maternal Aunt Heart disease Stroke age 26. Substance use disorder Heart defect flap in the heart that did not close. Social History Smoking/Tobacco Use Status: Never Tobacco: How many years used: 5 Smokeless tobacco user: other Second Hand Exposure: Yes Smoking risk assessment performed?: Yes Alcohol Intake: former Drug use: Daily Substance use type: marijuana Counseling given: Yes Counseling provided: provider counseling Household members: significant other Housing: apartment Number of Children: 1 Communication Needs: None Education Level: high school Do you need help understanding health information?: Never current occupation: [employer], [employer] Pets and animals: Yes Pets and animals: dog(s) Sexually active: Yes Do you think of yourself as: straight/heterosexual Current gender identity: female What is your relationship status?: living with partner Panel score (0-1 are the most socially isolated patients): 1 What type of physical activity do you participate in: walking and occasional exercise Special neto needs: No Agree to transfusion: Yes Do you feel safe at home: Yes Do you feel safe in your relationship?: Yes Additional Social history: unable to assess privately History History 3 Para 1 Hx # Term Pregnancies 1 Multiple births 0 Hx # Pregnancies 0 Ectopic pregnancies 0 AB induced 1 Hx Number of Living Children 1 AB spontaneous 0 Past Pregnancies Del. Date GA/Weeks # Preg Succ Route Wgt Sex Labor Lgth Anesth esia Location Prov Complic 10/12/22 41 No Yes vaginal 6 lb 7.17 oz Female 8hrs 50min regional [facility] 02/12/25 37 No Yes vaginal Female Dr Clara multani Delivery Date: 10/12/22 Last Updated by: KRISTA Lam Allergies and Home Medications Allergies Allergy/AdvReac Type Severity Reaction Status Date / Time cat dander Allergy Intermediate eye Verified 04/14/25 06:35 swelling dog dander Allergy Intermediate puffy eyes Verified 04/14/25 06:35 seasonal Allergy rhinitus Uncoded 04/14/25 06:35 Home Medications Medication Instructions Recorded Confirmed Type Unknown [No Known Home Meds] 03/25/25 1 06/13/24 History Exam Narrative Exam Narrative: general: Well nourished female in no immediate distress pulm: no overt respiratory distress; CTAB card: No overt arrythmias or murmurs abd: Soft, non-distended, non-tender ext: No swelling affect: appropriate, cooperative Results Last Vital Signs Temp 98.6 F 04/14/25 06:40 Pulse 84 04/14/25 06:40 Resp 20 04/14/25 06:40 BP 112/66 04/14/25 06:40 Pulse Ox 97 04/14/25 06:40 Time Spent Time spent with Patient: 40-54 minutes Time was spent: preparing to see the patient(eg.review tests), obtaining and/or reviewing separately otained hiistory, ordering medications,tests, procedures, referring, communicating with other health urgent care nurse practitioner, indepentently interpreting results, counseling the patient and care coordination
[2025-04-14 07:54] VITALS: BMI 29.1
--- NOTE | 2025-04-14 08:00 | W.PM.OP ---
Operative Note Operative Note PRE-OP DIAGNOSIS: Failed office IUD placement POST-OP DIAGNOSIS: same Status post vaginal delivery PROCEDURE: Patient was taken to the OR where twilight anesthesia was established and found to be adequate. She was positioned into a modified dorsolithotomy position with her legs up in yellowfin stirrups. A timeout was performed. A bimanual exam appreciated a midline uterus. A Graves speculum was used to visualize the cervix which was then cleaned with 3 passes of Betadine. A single-tooth tenaculum was used to stabilize the cervix. The cervix was noted to be already partially dilated, and easily accommodated a uterine sound. Her uterus sounded to 7-1/2 cm. The flange of the IUD insertion device was set to 7-1/2 cm, and the Mirena IUD was placed without issue using industry standards. The strings were cut to approximately 3 cm past the cervix. Patient tolerated the procedure well was taken to recovery in good condition. SURGEON: Nuha Figueredo ASSISTING SURGEON: Joie Barnes Refer to Anesthesia Record Date of Procedure: 04/14/25
[2025-04-14 08:10] VITALS: BP 109/55; PULSE 75; RESP 17; TEMP 36; O2SAT 98
[2025-04-14 08:30] VITALS: BP 109/64; PULSE 64; RESP 18; TEMP 36.5; O2SAT 96
--- NOTE | 2025-04-14 09:01 | W.ANESPOSTOP ---
Postoperative Evaluation Date, Time and Location Date Performed: 04/14/25 Time Performed: 08:41 Patient Location: Day Surgery Unit Vital Signs Most Recent Imported Vital Signs: Most Recent Vital Signs Temp Pulse Resp BP Pulse Ox 36.5 C 64 18 109/64 96 04/14/25 08:30 04/14/25 08:30 04/14/25 08:30 04/14/25 08:30 04/14/25 08:30 Pain Score Most Recent Pain Score: Most Recent Pain Score Pain Level 0 04/14/25 08:10 Assessment Mental Status: Awake (Alert & Oriented to Patient Baseline) Airway and Respiratory Function: Patent airway with normal (patient baseline) respiratory exam Cardiovascular Function: Hemodynamically Stable Hydration Status: Adequately Hydrated Nausea & Vomiting: No Nausea or Vomiting Pain: Pt. Denies Any Pain Peripheral Nerve Block: Patient did not receive a nerve block
== END 2025-04-14 09:04 | disposition home or self-care (01) ==
PROVIDERS: PCP Family Medicine; Visit Provider Obstetrics & Gynecology
PROC: (CPT 58300; principal; 2025-04-14 07:30)
DX: Z30.014 Encounter for initial prescription of intrauterine contraceptive device (principal)
CPT/HCPCS: 58300; J2704; J3010